=== PATIENT | female | born 1960 | race Caucasian/White ===

== ENCOUNTER 2016-09-08 19:31 | Emergency (ER) | payer BC ==
[2016-09-08 20:13] VITALS: BP 107/64
--- NOTE | 2016-09-08 21:41 | UC ---
UC General HPI - HPI Summary HPI Summary: The patient comes in today for: 1. Fever, Diarrhea, urinary frequency, urgency, and dysuria. Onset: 3 days ago. Palliative/provocative: Nothing makes her symptoms better or worse. Quality: Dysuria. Region: Severity: 0/10 Time: Comes and goes. Associated symptoms: Fever: No temperatures taken at home. Last UTI: She does not know. Recent antibiotics: NOne. Diarrhea: 2-3 stools/day. No blood or pus in stools. No cramps except sometimes. Vomiting: None. No nausea. * - History of Current Complaint Chief Complaint: UCGeneralIllness Stated Complaint: URINARY,FEVER,DIARRHEA Time Seen by Provider: 09/08/16 21:35 Hx Obtained From: Patient - Allergy/Home Medications Allergies/Adverse Reactions: Allergies Allergy/AdvReac Type Severity Reaction Status Date / Time wheat Allergy Coughing Uncoded 09/08/16 20:13 PMH/Surg Hx/FS Hx/Imm Hx Previously Healthy: No Endocrine History Of: Denies: Diabetes, Thyroid Disease, Hyperthyroidism, Hypothyroidism, Dyslipidemia Cardiovascular History Of: Reports: Hypertension Denies: Cardiac Disorders, Pacemaker/ICD, Myocardial Infarction, Congestive Heart Failure, Atrial Fibrillation, Deep Vein Thrombosis, Bleeding Disorders Respiratory History Of: Denies: COPD, Asthma, Bronchitis, Pneumonia, Pulmonary Embolism GI/ History Of: Denies: Gastroesophageal Reflux, Ulcer, Gastrointestinal Bleed, Gall Bladder Disease, Kidney Stones, Diverticulitis, Renal Disease, Urosepsis Neurological History Of: Denies: TIA, CVA, Dementia, Seizures, Migraine Psychological History Of: Reports: Depression Denies: Anxiety, Bipolar Disorder, Schizophrenia, Post Traumatic Stress Disorder Cancer History Of: Denies: Lung Cancer, Colorectal Cancer, Breast Cancer, Prostate Cancer, Cervical Cancer Other History Of: Negative For: HIV, Hepatitis B, Hepatitis C, Anticoagulant Therapy - Surgical History Surgical History: Yes Surgery Procedure, Year, and Place: tubal, C-sections, Tonsilectomy, hysterectomy - Family History Known Family History: Positive: Hypertension, Diabetes - Social History Occupation: Employed Full-time Alcohol Use: Occasionally Substance Use Type: None Smoking Status (MU): Never Smoked Tobacco - Immunization History Most Recent Influenza Vaccination: no Review of Systems Constitutional: Fever Skin: Negative Eyes: Negative ENT: Negative Respiratory: Negative Cardiovascular: Negative Gastrointestinal: Diarrhea Genitourinary: Dysuria, Frequency, Urgency All Other Systems Reviewed And Are Negative: Yes Physical Exam Triage Information Reviewed: Yes Appearance: Well-Appearing, No Pain Distress, Well-Nourished Vital Signs: Initial Vital Signs Temp 100 F 09/08/16 20:07 Pulse 76 09/08/16 20:07 Resp 16 09/08/16 20:07 BP 107/64 09/08/16 20:07 Pulse Ox 97 09/08/16 20:07 Vital Signs Reviewed: Yes Eyes: Positive: Conjunctiva Clear. Negative: Discharge ENT: Positive: Hearing grossly normal. Negative: Pharyngeal erythema, Nasal congestion, Nasal drainage, TM bulging, TM dull, TM red, Tonsillar swelling, Tonsillar exudate Dental: Negative: Gross Decay/Caries @, Dental Fracture @ Neck: Positive: Supple, Nontender, No Lymphadenopathy. Negative: Nuchal Rigidity Respiratory: Positive: Lungs clear, No respiratory distress, No accessory muscle use. Negative: Rhonchi, Wheezing Cardiovascular: Positive: RRR, No Murmur Abdomen Description: Positive: Nontender, No Organomegaly, Soft. Negative: Distended, Guarding Musculoskeletal: Positive: Strength Intact, ROM Intact Neurological: Positive: Alert, Muscle Tone Normal Psychological: Positive: Age Appropriate Behavior, Consolable Skin: Negative: rashes, breakdown Course/Dx - Differential Dx - Multi-Symptom Provider Diagnoses: Viral gastroenteritis. UTI Discharge - Discharge Plan Condition: Stable Disposition: HOME Patient Education Materials: Urinary Tract Infection in Women (ED) Referrals: Heather Adams MD [Primary Care Provider] - 1 Week (Please see your primary care provider in about one to two weeks to see how well you are doing. If you get worse, please be seen sooner.)
[2016-09-08] MEDS ORDERED: Phenazopyridine TAB* 100 MG PO ONE (21:51)
[2016-09-08] MEDS ORDERED: Sulfamethox/Trimethoprim DS 800/160* TAB PO ONE (21:52)
== END 2016-09-08 22:08 | disposition home or self-care (01) ==
LOC: UCCORT 19:31
DX: A08.4 Viral intestinal infection, unspecified (principal); N39.0 Urinary tract infection, site not specified; I10 Essential (primary) hypertension; F32.9 Major depressive disorder, single episode, unspecified
CPT/HCPCS: 81003; 87086; 99212; A9270-GY; G0463

== ENCOUNTER 2016-11-16 01:41 | Observation (INO) | payer BC ==
[2016-11-16 02:51] LABS: Hematocrit 41 % (35-47); Hemoglobin 13.7 g/dl (12.0-16.0); Mean Corpuscular HGB Conc 33 g/dl (31-36); Mean Corpuscular Hemoglobin 31 pg (27-31); Mean Corpuscular Volume 93 fL (80-97); Mean Platelet Volume 9 um3 (7.4-10.4); Red Blood Count 4.47 10^6/ul (4.0-5.4); Red Cell Distribution Width 14 % (10.5-15); White Blood Count 10.1 10^3/ul (3.5-10.8)
[2016-11-16 03:07] LABS: ALT 107 U/L (7-52); AST 193 U/L (13-39); Albumin 4.2 g/dL (3.2-5.2); Alkaline Phosphatase 104 U/L (34-104); Anion Gap 7 mmol/L (2-11); BUN/Creatinine Ratio 16.7 (8-20); Blood Urea Nitrogen 13 mg/dL (6-24); CO2 Carbon Dioxide 25 mmol/L (22-32); Calcium 9.2 mg/dL (8.6-10.3); Chloride 104 mmol/L (101-111); EGFR African American 97.6 (>60); EGFR Non-African American 75.9 (>60); Globulin 3.4 g/dL (2-4); Glucose 137 mg/dL (70-100); Potassium 4.2 mmol/L (3.5-5.0); Sodium 136 mmol/L (133-145); Total Protein 7.6 g/dL (6.4-8.9)
[2016-11-16 03:08] LABS: Troponin I 0.01 ng/mL (<0.04)
[2016-11-16 03:16] LABS: TSH (Thyroid Stimulating Horm) 1.51 mcIU/mL (0.34-5.60)
[2016-11-16] MEDS ORDERED: Aspirin Low Dose CHEW TAB* 81 MG PO ONE (07:08)
[2016-11-16 07:45] LABS: Hematocrit 40 % (35-47); Hemoglobin 13.4 g/dl (12.0-16.0); Mean Corpuscular HGB Conc 34 g/dl (31-36); Mean Corpuscular Hemoglobin 31 pg (27-31); Mean Corpuscular Volume 92 fL (80-97); Mean Platelet Volume 9 um3 (7.4-10.4); Red Blood Count 4.35 10^6/ul (4.0-5.4); Red Cell Distribution Width 14 % (10.5-15); White Blood Count 8.8 10^3/ul (3.5-10.8)
--- NOTE | 2016-11-16 08:03 | RAD ---
INDICATION: Syncope COMPARISON: None TECHNIQUE: An AP portable view obtained at 0730 hours is submitted. FINDINGS: Bones/Soft Tissues: There are no acute bony findings. Cardiomediastinal: The cardiomediastinal silhouette is normal. Lungs: There are no infiltrates. Pleura: There are no pleural effusions. Other: None IMPRESSION: NO ACTIVE DISEASE.
[2016-11-16 08:06] LABS: Urine Bilirubin Negative (Negative); Urine Glucose Negative (Negative); Urine Nitrite Negative (Negative)
[2016-11-16] MEDS ORDERED: Iohexol 350* (CONTRAST) 500 ML MDV IV ONE (08:32)
[2016-11-16] MEDS ORDERED: Lisinopril TAB* 10 MG PO ONE (08:34)
[2016-11-16] MEDS ORDERED: Citalopram TAB* 20 MG PO SCH (09:00)
--- NOTE | 2016-11-16 09:34 | RAD ---
INDICATION: Back pain. Evaluate for aortic dissection. COMPARISON: None TECHNIQUE: Axial source images were obtained from the thoracic inlet to the iliac crests following administration of [address] angiographic technique was utilized. Coronal and sagittal reconstructed images were acquired. Neck/thyroid: The visualized neck to include the thyroid appear normal. Chest wall: There are no acute abnormalities of the bony thorax or chest wall. There is no supraclavicular, infraclavicular, or axillary lymphadenopathy. Lungs : There are no pulmonary parenchymal masses or infiltrates. The pulmonary interstitium appears normal. There are no endobronchial lesions. Mediastinum: There is no evidence of mediastinal or hilar adenopathy. The esophagus appears normal. Aorta/the central arteries: The heart is normal in size. There is no pericardial effusion. There are no CT radiographic abnormalities of the arch or great vessels arising from the arch. There is no evidence of aortic thoracic or abdominal aneurysm or dissection. 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 There are single renal arteries The visualized iliac vessels are normal. Pleura : There are no pleural-based masses or effusions. Abdominal viscera: Early arterial phase enhancement of the solid viscera demonstrates mild hepatomegaly with hepatic steatosis but no focal mass. The spleen appears normal on the early arterial phase images. There is no adrenal or pancreatic pathology. The kidneys are unremarkable with prompt perfusion. Other: There is no free fluid or adenopathy. The noncontrast CT appearance the visualized bowel is unremarkable. There are no acute osseous findings. There is mild diastases of the rectus abdominis musculature IMPRESSION: NO CT EVIDENCE OF AORTIC ANEURYSM OR DISSECTION.
[2016-11-16] MEDS ORDERED: Ondansetron INJ* 2 MG/ML VIAL IV PRN (11:16)
[2016-11-16] MEDS ORDERED: NS 0.9% 1000 ML* 1,000 ML IV SCH (11:30)
[2016-11-16] MEDS ORDERED: Thiamine IV* 100 MG, Folic Acid IV* 1 MG, Multiple Vitamin IV ADULT* 10 ML in NS 0.9% 1... IV ONE (11:30)
[2016-11-16 11:49] LABS: Alcohol < 10 mg/dL (<10)
[2016-11-16] MEDS: Sucralfate TAB* 1 GM PO SCH ×2 (12:35→16:34)
[2016-11-16] MEDS: Omeprazole CAP* 20 MG PO SCH ×2 (12:35→16:33)
--- NOTE | 2016-11-16 19:46 | HP ---
CC: Dr. Heather Adams* HISTORY AND PHYSICAL: DATE OF ADMISSION: 11/16/16 PRIMARY CARE PROVIDER: Dr. Heather Adams. ATTENDING PHYSICIAN WHILE IN THE HOSPITAL: Maame Monsivais DO.* (Report dictated by Elvin Roque NP). CHIEF COMPLAINT: 1. Syncope. 2. Epigastric pain radiating into the back and chest. HISTORY OF PRESENT ILLNESS: Ms. Diallo is a 56-year-old female patient, she has a history of depression and hypertension. She comes in today, last night she had 2 syncopal episodes last night after eating dinner. She ate half her dinner, she was feeling epigastric discomfort, burning discomfort. She said that her was driving her home. She started to become nauseous, she asked him to pullover and the door was open, but she was still buckled in and the next thing she knew she had fainted apparently according to the 's reports to her and she was out for seconds, she said. She came to, she recognized where she was when she had fainted. She denied any chest pain prior to this, but she did admit to feeling nauseated and having some epigastric discomfort. She said she did not feel short of breath. She has not been sick recently. There has been no recent trips or travel. No long car rides. She states that she has not had any cough or fevers. She got home and had a similar episode again where she became nauseous and she fainted and she was having epigastric discomfort and the pain was getting much worse and it was described as a sharp stabbing pain that again was going into the back and up into the chest. She was concerned. She felt because of the second time of her fainting , she decided to come into the ER. She does admit that her father is actively dying and this has caused her a lot of stress and over the last couple of weeks , she has been drinking mixed alcohol drinks on a daily basis. She does not quantify how much, but says she has been drinking much more heavily than when she normally does. She denies currently having any chest pain, she says she does not have any epigastric pain now. She does not feel nauseous. She denied having any recent change in medications. No recent fevers or chills. Because of the syncopal episodes and this epigastric discomfort, the hospitalist service was asked to evaluate for admission. PAST MEDICAL HISTORY: Significant for: 1. Depression. 2. Hypertension. PAST SURGICAL HISTORY: She has had: 1. . 2. Hysterectomy. 3. Tubal ligation. HOME MEDICATIONS: include, 1. Lisinopril 10 mg p.o. daily. 2. Lexapro 1 tablet p.o. daily. ALLERGIES TO MEDICATIONS: Denied. FAMILY HISTORY: Mother had a history of AFib , dementia. Father had a history of AFib as well, he also has a history of congestive heart failure and liver dysfunction. SOCIAL HISTORY: She does not smoke. She is now drinking nightly over the last couple of weeks. She does not quantify how much. Her surrogate decision maker is her . REVIEW OF SYSTEMS: There is no documented fevers. She denied having any significant weight changes. There was no double vision. There is no ear discharge. She denies having any double vision. There is no rhinorrhea. No sore throat. No thyroid enlargement. She denied having any chest pain currently, but there was some per my HPI. She did have an epigastric discomfort , nausea, but there was one episode of vomiting with a second episode of nausea. No dysuria, no frequency. No seizure. There was loss of consciousness. No pruritus and no skin ulceration. Review of 14 systems completed, all others negative. PHYSICAL EXAMINATION GENERAL: At this time, Ms. Diallo is a 56-year-old female patient. She appears to be well nourished, well developed. She is sitting in the ER stretcher. She does not appear to be in any acute distress. VITAL SIGNS: Blood pressure 119/62, pulse 73, respirations 18, O2 sat 97%, temperature 98.4 HEENT: Head is atraumatic and normocephalic. Eyes: EOMs are intact. Sclerae was anicteric and not pale. Throat: Oral mucosa appears to be moist. No oropharyngeal erythema. NECK: Supple. LUNGS: Clear to auscultation. No wheezes, rales or rhonchi. HEART: Sounds S1 and S2. Regular rate and rhythm. No murmurs, rubs or gallops. ABDOMEN: Soft, flat. Nontender. There was no tenderness in the epigastric area. EXTREMITIES: Pulses were 2+ throughout. She is able to move all 4 extremities with 5/5 strength. NEUROLOGIC: The patient is awake, she is alert, she is oriented x3, no gross focal deficits. SKIN: Intact. LABORATORY DATA/IMAGING: Today revealed a WBC of 8.8, RBC of 4.35, hemoglobin of 13.4, hematocrit of 40, platelet count 224. Sodium is 136, potassium 4.2, chloride of 104, bicarb 25, BUN 13, creatinine 0.78, glucose 137. Initial lactic was 2.2, it is now 1.9. Her mag was 2.0 with a total bilirubin 1.0. AST 193, ALT 107. Alk phos 104. Troponin 0.01. Repeat troponin was 0. Albumin 4.2. Urine was obtained that was positive for urobilinogen. She did have a CTA of the chest and abdomen which revealed no CT evidence of aortic aneurysm or dissection. There was an EKG obtained today which showed a normal sinus rhythm with a rate of 76, no ST elevations or T-wave inversions were noted. She had a chest x-ray obtained today as well which revealed impression, no active disease. Old medical records are reviewed. ASSESSMENT AND PLAN: Ms. Diallo is a 56-year-old female patient coming into the ER today with complaints of a 2 syncopal episodes in the setting of nausea and epigastric pain. She will be admitted under observation status for: 1. Syncope. I suspect that reason she is passing out twice now is probably because of vasovagal due to pain and nausea. My plan now is to go ahead check an echo. I will place her on telemetry. Her troponins have been cycled. I will get orthostatic blood pressures. I see that those have not been ordered yet. In addition to this, we will continue to monitor her and pending on the echo will dependent on her disposition. 2. Chest discomfort with associated epigastric pain. This is probably gastritis from her alcohol consumption. I am going to put her on the Carafate and omeprazole. I have also ordered a stress test, she does have the history of hypertension, just to make sure this is not cardiac related, which will be done tomorrow. She will be NPO after midnight and then have a heart healthy diet. We did cycle her troponins. I will get another troponin in the morning and I will check her lipid panel. 3. Elevated LFTs. This is probably secondary to her alcohol use. I will go ahead and give her a banana bag. I have asked her to abstain from drinking as I think this is probably why she is having the epigastric discomfort. I do not think she needs the [facility] protocol just yet. She has never had any signs of withdrawal and she says she has just been drinking like this in the last couple of weeks due to family, her father dying. We will monitor her, should she have any signs of withdrawal, then obviously I would go ahead and get her on the [facility] protocol. 4. DVT prophylaxis. She will be placed on SCDs. 5. Code status. Full code. 6. Fluids, electrolytes, nutrition. She can have a heart healthy diet and she is NPO after midnight. TIME SPENT: Time spent on the admission was 60 minutes, greater than half the time was spent face to face with the patient obtaining my history and physical, the other half of the time was spent going over the plan of care with the patient and implementing the place of care. I did discuss the plan of care with my attending Dr. Monsivais, she is in agreement. ELVIN ROQUE, MELINA [id number]/CPS #: [id number] ZOILA
[2016-11-17 05:13] LABS: Hematocrit 39 % (35-47); Mean Corpuscular HGB Conc 33 g/dl (31-36); Mean Corpuscular Hemoglobin 31 pg (27-31); Mean Corpuscular Volume 94 fL (80-97); Mean Platelet Volume 9 um3 (7.4-10.4); Red Blood Count 4.15 10^6/ul (4.0-5.4); Red Cell Distribution Width 14 % (10.5-15)
[2016-11-17 05:42] LABS: Troponin I 0.01 ng/mL (<0.04)
[2016-11-17 06:01] LABS: Albumin 3.5 g/dL (3.2-5.2); BUN/Creatinine Ratio 14.3 (8-20); Calcium 8.3 mg/dL (8.6-10.3); Direct Bilirubin 0.2 mg/dL (0.03-0.18); Globulin 2.8 g/dL (2-4); Potassium 4.2 mmol/L (3.5-5.0); Total Protein 6.3 g/dL (6.4-8.9)
[2016-11-17 07:38] LABS: Indirect Bilirubin 0.5 mg/dL (0.3-1.0); Total Bilirubin 0.7 mg/dL (0.2-1.0)
[2016-11-17] MEDS: Sucralfate TAB* 1 GM PO SCH ×2 (07:40→13:51)
[2016-11-17] MEDS ORDERED: Thiamine TAB* 100 MG TAB PO SCH (09:00)
[2016-11-17] MEDS ORDERED: Lisinopril TAB* 10 MG PO SCH (09:00)
[2016-11-17] MEDS ORDERED: CMC:Escitalopram (NF) 10 MG TAB PO SCH (09:00)
[2016-11-17] MEDS ORDERED: Folic Acid TAB* 1 MG PO SCH (09:00)
[2016-11-17] MEDS: Omeprazole CAP* 20 MG PO SCH (10:11)
--- NOTE | 2016-11-17 10:31 | ECHO ---
Patient: [facility] Rec#: [id number] : 1960 Date: 11/17/2016 Age: 56y Height: 172.7 cm / 68.0 in Weight: 102.1 kg / 225.0 lbs Sex: F BSA: 2.2 Room#: [facility] Admit Date#: 11/16/2016 Type: Inpatient Referring: Maame Monsivais DO Reading: Tavon Taveras MD Independent Agent Music Education: Brionna Navarro RN RDCS CC: Heather Adams MD Transthoracic Echocardiogram Indication: Syncope BP: 103/66 HR: 64 Rhythm: NSR Findings History: HTN, obesity Technical Comments: The study quality is fair. The study is technically limited due to patient body habitus. Completed at 0845. Left Ventricle: The left ventricular chamber size is normal. Septal wall hypertrophy is observed. Global left ventricular wall motion and contractility are within normal limits. Left ventricular systolic function is at the lower limits of normal. The estimated ejection fraction is 50-55%. Normal left ventricular diastolic filling is observed. Left Atrium: The left atrial chamber size is normal. Right Ventricle: The right ventricular chamber size and systolic function are within normal limits. Right Atrium: The right atrial cavity size is normal. Aortic Valve: The aortic valve is trileaflet. The aortic valve leaflets are mildly thickened. There is a trace of aortic regurgitation. There is no evidence of aortic stenosis. Mitral Valve: The mitral valve leaflets are mildly thickened. There is mild mitral regurgitation. There is no evidence of mitral stenosis. Tricuspid Valve: The tricuspid valve leaflets are normal. There is trace tricuspid regurgitation. Unable to estimate the right ventricular systolic pressure. Pulmonic Valve: The pulmonic valve appears normal. There is trace to mild pulmonic regurgitation. There is no pulmonic stenosis. Pericardium: There is no significant pericardial effusion. A pericardial fat pad is visualized. Aorta: There is no dilatation of the ascending aorta. There is no dilatation of the aortic arch. There is no dilation of the aortic root. Pulmonary Artery: The main pulmonary artery is not well visualized. Venous: The inferior vena cava appears normal in size. There is an approximate 50% respiratory change in the inferior vena cava dimension. Conclusions Global left ventricular wall motion and contractility are within normal limits. Left ventricular systolic function is at the lower limits of normal. The estimated ejection fraction is 50-55%. The right ventricular chamber size and systolic function are within normal limits. There is a trace of aortic regurgitation. There is mild mitral regurgitation. There is trace tricuspid regurgitation. Unable to estimate the right ventricular systolic pressure. There is no significant pericardial effusion. Measurements Name Value Normal Range RVDdMajor (2D) 3.2 cm (2.2 - 4.4) RAd ISD 4CH 4.2 cm (3.4 - 4.9) RA (A4C)W 3.4 cm (2.9 - 4.6) IVSd (2D) 1.1 cm (0.6 - 1) LVPWd (2D) 0.9 cm (0.6 - 1) LVIDd (2D) 4.3 cm (3.6 - 5.4) LVIDs (2D) 3.2 cm - LV FS (2D) 25 % (25 - 45) Aortic Annulus 2.1 cm (1.4 - 2.6) Ao root diameter (2D) 2.7 cm (2.1 - 3.5) Ascending Ao 3.2 cm (2.1 - 3.4) Aortic arch 2.8 cm (1.8 - 3.4) LAd ISD 4CH 4.7 cm (2.9 - 5.3) LA ISD 4CH W 3.1 cm (2.5 - 4.5) Name Value Normal Range LA ESV SP 4CH (A/L) 44 ml - LA ESV SP 2CH (A/L) 31 ml - LA ESV BP (A/L) 37 ml - LA ESV BP (A/L) index 17 ml/m2 - LA ESV SP 4CH (MOD) 41 ml - LA ESV SP 2CH (MOD) 29 ml - Name Value Normal Range MV E-wave Vmax 0.75 m/sec - MV deceleration time 157 msec - MV A-wave Vmax 0.58 m/sec - MV E:A ratio 1.3 ratio - LV septal e' Vmax 0.1 m/sec - LV lateral e' Vmax 0.11 m/sec - LV E:e' septal ratio 7.5 ratio - LV E:e' lateral ratio 6.8 ratio - Name Value Normal Range AV Vmax 1.2 m/sec - AV VTI 30 cm - AV peak gradient 5 mmHg - AV mean gradient 4 mmHg - LVOT Vmax 1.1 m/sec - LVOT VTI 25.8 cm - LVOT peak gradient 4.4 mmHg - LVOT mean gradient 2.6 mmHg - AMY Vmax 0.7 m/sec - Name Value Normal Range IVC diameter 2.1 cm - Name Value Normal Range PV Vmax 0.75 m/sec -
--- NOTE | 2016-11-17 10:34 | RAD ---
Edited for charges. INDICATION: Chest and epigastric pain. COMPARISON: There are no prior studies available for comparison. Technique: A single day myocardial perfusion stress study was performed. Initially a resting study was performed. The patient was given an intravenous injection of 11.0 mCi of technetium 99m tetrofosmin and and the heart was imaged in multiple projections. The patient returned later in the day and under the direction of Dr. Contreras, the patient was exercised to a peak heart rate of 147 beats per minute which was 91% of the maximum predicted heart rate. Subsequently the patient was given intravenous injection of 25.2 mCi of technetium 99m tetrofosmin and the heart was imaged in multiple projections. Images were reconstructed in the axial, sagittal and coronal planes and in a 3- D format. FINDINGS: There appears to be normal wall motion and myocardial thickening. The left ventricular ejection fraction was calculated to be 77%. Review of the images demonstrates normal distribution of radiopharmaceutical. There is no evidence for infarct or ischemia. IMPRESSION: NO EVIDENCE FOR INFARCT OR ISCHEMIA. ASSESSMENT: Low risk. Based on imaging criteria from ACC/AHA 2002 Guideline Update for the Management of Patients With Chronic Stable Angina Table 23. Noninvasive Risk Stratification. MTDD
[2016-11-17 11:20] VITALS: BP 124/78
--- NOTE | 2016-11-17 13:07 | DS ---
DOA: 11/16/2016 DOD: 11/17/2016 Care team: Admitting provider: Dr. Maame Monsivais Attending provider: Tj Jara PA-C Discharge provider: GRAY Kaufman PCP: Dr. Heather Adams Discharge Diagnosis: 1) Syncope 2) Gastritis secondary to alcohol use 3) Transaminitis Secondary Diagnosis: 1) Depression 2) Hypertension Discharge medications: Omeprazole 20 mg PO daily x 2 weeks. Lisinopril 10 mg PO daily Lexapro 10 mg PO daily Changes to home medications: Add Omeprazole Imaging: EKG: NSR CXR: No active cardiopulmonary disease CTA: No evidence of aortic aneurysm or dissection Transthoracic echo: WNL with EF of 50-55% with normal ventricular and valvular functioning and contractility. Nuclear stress test: No evidence of ischemia or infarct. Hospital Course: This is a 56 yo white female with PMH of HTN and depression that presented to the ER on 11/16/2016 after 2 syncopal episodes yesterday night about 3 hours apart with associated epigastric pain with radiation into back and chest and nausea with vomiting after second episode. One episode was after dinner and the other episode was while driving and patient received troponins which came back negative, EKG/CXR both negative, and given her described epigastric pain while radiation was worked up for possible aortic dissection or aneurysm with CTA that came back negative. Her CBC on admission was essentially WNL and Chemistries displayed transaminase with AST>ALT at 193>107 and mild lactic acidosis which resolved and patient received a banana bag in the ER with continued thiamine and folic acid supplementation. Patient admits to recent increase in alcohol use in the past few weeks without quantification to how much , with increased stress from the of her father. She was consulted on the impacts of alcohol use and cause of her elevated LFTs. Patient remained on telemetry and received a transthoracic echo and nuclear stress test while admitted and that was without any abnormal findings and with no ischemia or infarct to help rule out any cardiac causation of her syncopal episodes and epigastric pains. It was suspected that her syncopal episodes with vaso vagal in nature and her epigastric pain a new gastritis given her recent alcohol use. She received PPI and carafate while impatient with relief from symptoms. She denies any pain or dizziness on day of discharged with remained elevated transaminases, but in agreement to abstain from alcohol use. She is to remain on PPI for 2 weeks for gastritis symptoms. Follow up plan/disposition: She is to return home with her . She is in agreement from alcohol abstinence and PPI treatment. She should follow up with PCP in next 1-2 weeks with repeats checks in her transaminases.
--- NOTE | 2016-11-18 05:08 | DS ---
CC: Dr. Heather Adams * DISCHARGE SUMMARY: DATE OF ADMISSION: 11/16/16 DATE OF DISCHARGE: 11/17/16 PRIMARY CARE PROVIDER: Dr. Heather Adams. DISCHARGING PROVIDER: JANUSZ Bailey SUPERVISING PHYSICIAN: Lakeisha Cuba MD * (DICTATED BY JANUSZ BIALEY) PRIMARY DISCHARGE DIAGNOSES: 1. Syncope - likely vasovagal. 2. Suspected gastritis. 3. Transaminitis - likely secondary to alcohol intake. SECONDARY DISCHARGE DIAGNOSES: 1. Hypertension. 2. Depression. DISCHARGE MEDICATIONS: 1. Lexapro 20 mg p.o. daily. 2. Lisinopril 10 mg p.o. daily. 3. Omeprazole 20 mg p.o. b.i.d. x14 days. MEDICATIONS CHANGES: Omeprazole x2 weeks. HOSPITAL IMAGIN. Chest x-ray shows no acute process. 2. CTA of the chest and abdomen shows no evidence of aortic aneurysm or dissection. 3. Nuclear stress test is negative for ischemia or infarct. 4. Transthoracic echocardiogram is essentially within normal limits with an ejection fraction of 50% to 55% with no significant valvular disease. HOSPITAL COURSE: This is a 56-year-old female with history of depression and hypertension, who presented to the emergency department with complaints of epigastric pain that was radiating through to her back as well as two syncopal episodes. The patient's syncope occurred really after eating dinner after which she began complaining of a burning epigastric pain with associated nausea. She was driving with her and had asked him to bleach boiler puller when she syncopized for at least several seconds. She admitted to recent increase in alcohol intake related to the stress of her father actively dying. Initial workup was mostly benign including a normal CBC. Chemistries demonstrated a transaminitis with nearly a 2:1 ratio of AST to ALT and a mildly elevated lactic acid. Serum alcohol was negative at that time of admission. CTA of the chest and abdomen were performed specifically evaluating for dissection due to her complaints of epigastric pain radiating through to her back. CTA was negative. The patient underwent echocardiogram and nuclear stress test, which were essentially within normal limits and did not demonstrate any specific pathology. On the morning of discharge, the patient is asymptomatic without complaints of abdominal pain or feelings of lightheadedness. 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 Specifically discussed with her is the findings of transaminitis and suspected gastritis and how those are related to her alcohol intake as well. DISPOSITION AND FOLLOWUP PLANNING: The patient is being discharged to home, where she lives with her . Recommend 2 weeks of omeprazole and close followup with her primary care provider. JANUSZ BAILEY [id number]/[facility] #: [id number] ZOILA
== END 2016-11-17 14:00 | disposition home or self-care (01) ==
LOC: ED 01:41 → MEDTELE 10:16
PROVIDERS: ADMIT Hospitalist; ATTEND Internal Medicine
DX: R55 Syncope and collapse (principal); K29.20 Alcoholic gastritis without bleeding; I10 Essential (primary) hypertension; F32.9 Major depressive disorder, single episode, unspecified
CPT/HCPCS: 36415; 71010; 71275; 74175; 78452; 80048; 80053; 80074; 80076; 80320; 81003; 82977; 83605; 83735; 84443; 84484; 85025; 85610; 93005; 93017; 93306; 96374; 99283; A9270-GY; A9502; G0378; G0480; Q9967

== ENCOUNTER 2017-09-03 08:21 | Emergency (ER) | payer BC ==
[2017-09-03 08:53] VITALS: BP 111/77
--- NOTE | 2017-09-03 09:12 | UC ---
Complaint Female HPI - HPI Summary HPI Summary: URINARY BURNING AND FREQUENCY X 1 DAY + URGENCY, NO FEVER, NO CHILLS, NO FLANK PAIN - History Of Current Complaint Chief Complaint: UCGU Stated Complaint: URINARY COMPLAINT Time Seen by Provider: 09/03/17 08:58 Hx Obtained From: Patient Hx Last Menstrual Period: n/a ?: No Onset/Duration: Gradual Onset, Lasting Days - 1, Still Present Timing: Constant Severity Initially: Moderate Severity Currently: Moderate Pain Intensity: 4 Character: Burning Aggravating Factor(s): Urination Alleviating Factor(s): Nothing Associated Signs And Symptoms: Negative: Fever, Back Pain, Vaginal Bleeding/ Discharge, Vaginal Discharge, Nausea, Vomiting(# Of Episodes =), Genital Swelling, Genital Blisters, Retained Foregin Body (Specify) - Allergies/Home Medications Allergies/Adverse Reactions: Allergies Allergy/AdvReac Type Severity Reaction Status Date / Time wheat Allergy Coughing Uncoded 09/03/17 08:47 Home Medications: Home Medications Aspirin EC TAB* [Ecotrin EC Low Dose 81 MG*] 81 mg PO DAILY 09/03/17 [History Confirmed 09/03/17] Atorvastatin* [Lipitor*] 10 mg PO BEDTIME 09/03/17 [History Confirmed 09/03/17] Escitalopram Oxalate [Lexapro] 10 mg PO 09/03/17 [History] PMH/Surg Hx/FS Hx/Imm Hx Cardiovascular History: Hypertension Other History Of: Negative For: HIV, Hepatitis B, Hepatitis C, Anticoagulant Therapy - Surgical History Surgical History: Yes Surgery Procedure, Year, and Place: tubal, C-sections, Tonsilectomy, hysterectomy - Family History Known Family History: Positive: Hypertension, Diabetes - Social History Alcohol Use: Occasionally Alcohol Amount: 3 mixed drinks/day Substance Use Type: None Smoking Status (MU): Never Smoked Tobacco - Immunization History Most Recent Influenza Vaccination: no Review of Systems Constitutional: Negative Skin: Negative Eyes: Negative ENT: Negative Respiratory: Negative Cardiovascular: Negative Gastrointestinal: Negative Genitourinary: Dysuria, Frequency, Urgency Is Patient Immunocompromised?: No All Other Systems Reviewed And Are Negative: Yes Physical Exam Triage Information Reviewed: Yes Appearance: Well-Appearing, No Pain Distress, Well-Nourished Vital Signs: Initial Vital Signs Temp 97.4 F 09/03/17 08:44 Pulse 67 09/03/17 08:44 Resp 18 09/03/17 08:44 BP 111/77 09/03/17 08:44 Pulse Ox 97 09/03/17 08:44 Vital Signs Reviewed: Yes Eyes: Positive: Conjunctiva Clear ENT: Positive: Normal ENT inspection, Hearing grossly normal, Pharynx normal Neck: Positive: Supple, Nontender, No Lymphadenopathy Respiratory: Positive: Chest non-tender, Lungs clear, Normal breath sounds Cardiovascular: Positive: RRR, No Murmur, Pulses Normal Abdomen Description: Positive: Nontender, Soft. Negative: CVA Tenderness (R), CVA Tenderness (L), Distended, Guarding Bowel Sounds: Positive: Present Complaint Female Dx - Differential Dx/Diagnosis Provider Diagnoses: UTI Discharge - Sign-Out/Discharge Documenting (check all that apply): Discharge - Discharge Plan Condition: Stable Disposition: HOME Prescriptions: Sulfamethox/Trimethoprim DS* [Bactrim DS 800/160 TAB*] 1 tab PO BID #14 tab Patient Education Materials: Urinary Tract Infection in Women (DC) Referrals: Heather Adams MD [Primary Care Provider] - If Needed - Billing Disposition and Condition Condition: STABLE Disposition: HOME
--- NOTE | 2017-09-05 07:33 | UC ---
- Progress Note Progress Note: Urine culture is negative. Stop antibiotics. Discharge - Sign-Out/Discharge Documenting (check all that apply): Discharge - Discharge Plan Condition: Stable Disposition: HOME Prescriptions: Sulfamethox/Trimethoprim DS* [Bactrim DS 800/160 TAB*] 1 tab PO BID #14 tab Patient Education Materials: Urinary Tract Infection in Women (DC) Referrals: Heather Adams MD [Primary Care Provider] - If Needed - Billing Disposition and Condition Condition: STABLE Disposition: HOME
== END 2017-09-03 09:12 | disposition home or self-care (01) ==
LOC: UCCORT 08:21
DX: N39.0 Urinary tract infection, site not specified (principal); I10 Essential (primary) hypertension
CPT/HCPCS: 81003; 87086; 99212; G0463

== ENCOUNTER 2017-11-23 10:00 | Emergency (ER) | payer BC ==
[2017-11-23 10:14] VITALS: BP 137/80
--- NOTE | 2017-11-23 10:29 | ED ---
GI/ HPI - HPI Summary HPI Summary: 57 yr old female with dysuria, frequency of urination. Onset just this morning. no fever, chills, back pain, nausea or vomiting. - History of Current Complaint Chief Complaint: UCGU Time Seen by Provider: 11/23/17 10:10 Stated Complaint: URINARY Hx Last Menstrual Period: n/a Pain Intensity: 2 - Additional Pertinent History Primary Care Physician: SHAYY - Allergy/Home Medications Allergies/Adverse Reactions: Allergies Allergy/AdvReac Type Severity Reaction Status Date / Time wheat Allergy Coughing Uncoded 11/23/17 10:11 Home Medications: Home Medications Ursodiol CAP* [Actigall CAP 300 MG*] 300 mg PO BID 11/23/17 [History Confirmed 11/23/17] PMH/Surg Hx/FS Hx/Imm Hx Endocrine/Hematology History: Denies: Hx Anticoagulant Therapy, Hx Diabetes, Hx Thyroid Disease Cardiovascular History: Reports: Hx Hypertension Denies: Hx Angina, Hx Congestive Heart Failure, Hx Coronary Artery Disease, Hx Deep Vein Thrombosis, Hx Hypercholesterolemia, Hx Myocardial Infarction, Hx Pacemaker/ICD, Hx Valvular Heart Disease Respiratory History: Denies: Hx Asthma, Hx Chronic Obstructive Pulmonary Disease (COPD), Hx Lung Cancer, Hx Pneumonia, Hx Pulmonary Embolism GI History: Denies: Hx Gall Bladder Disease, Hx Gastrointestinal Bleed, Hx Ulcer, Hx Urosepsis History: Denies: Hx Kidney Stones, Hx Renal Disease Sensory History: Reports: Hx Contacts or Glasses Denies: Hx Hearing Aid Opthamlomology History: Reports: Hx Contacts or Glasses Neurological History: Denies: Hx Dementia, Hx Migraine, Hx Seizures, Hx Transient Ischemic Attacks (TIA) Psychiatric History: Reports: Hx Depression Denies: Hx Anxiety, Hx Schizophrenia, Hx Bipolar Disorder - Surgical History Surgery Procedure, Year, and Place: tubal, , Tonsilectomy, hysterectomy Infectious Disease History: No Infectious Disease History: Denies: Traveled Outside the [place] in Last 30 Days - Family History Known Family History: Positive: Hypertension, Diabetes - Social History Occupation: Employed Full-time Alcohol Use: Daily Alcohol Amount: 1 drink daily Substance Use Type: Reports: None Smoking Status (MU): Never Smoked Tobacco Review of Systems Constitutional: Negative Positive: dysuria, frequency All Other Systems Reviewed And Are Negative: Yes Physical Exam Triage Information Reviewed: Yes Vital Signs On Initial Exam: Initial Vitals Temp Pulse Resp BP Pulse Ox 97.8 F 70 16 137/80 97 11/23/17 10:08 11/23/17 10:08 11/23/17 10:08 11/23/17 10:08 11/23/17 10:08 Vital Signs Reviewed: Yes Appearance: Positive: Well-Appearing, No Pain Distress Skin: Positive: Warm, Skin Color Reflects Adequate Perfusion Head/Face: Positive: Normal Head/Face Inspection Eyes: Positive: EOMI ENT: Positive: Pharynx normal, TMs normal Neck: Positive: Nontender Respiratory/Lung Sounds: Positive: Clear to Auscultation, Breath Sounds Present Cardiovascular: Positive: RRR. Negative: Murmur Abdomen Description: Negative: CVA Tenderness (R), CVA Tenderness (L) Musculoskeletal: Positive: Strength/ROM Intact Neurological: Positive: Sensory/Motor Intact, Alert, Oriented to Person Place, Time, CN Intact II-III Psychiatric: Positive: Normal - [place] Coma Scale Best Eye Response: 4 - Spontaneous Best Motor Response: 6 - Obeys Commands Best Verbal Response: 5 - Oriented Coma Scale Total: 15 Diagnostics - Vital Signs Vital Signs Temp Pulse Resp BP Pulse Ox 11/23/17 10:08 97.8 F 70 16 137/80 97 - Laboratory Lab Results: Lab Results 11/23/17 Range/Units 10:18 POC Urine Color Yellow POC Urine Clarity Slightly cloudy POC Urine pH 8.5 (5-9) POC Ur Specif [place] 1.020 (1.010-1.030) POC Urine Protein 1+ A (Negative) POC Ur Glucose (UA) Negative (Negative) POC Urine Ketones Negative (Negative) POC Urine Blood 2+ A (Negative) POC Urine Nitrite Negative (Negative) POC Urine Bilirubin Negative (Negative) POC Urine Urobilinogen 1.0 (Negative) POC U Leukocyte Esteras 1+ A (Negative) Lab Statement: Any lab studies that have been ordered have been reviewed, and results considered in the medical decision making process. GIGU Course/Dx - Course Course Of Treatment: 57 year old female with UTI. Plan DC home. - Diagnoses Provider Diagnoses: UTI (urinary tract infection) Discharge - Sign-Out/Discharge Documenting (check all that apply): Discharge/Admit/Transfer - Discharge Plan Condition: Good Disposition: HOME Prescriptions: Cephalexin CAP* [Keflex CAP*] 500 mg PO TID #15 cap Patient Education Materials: Urinary Tract Infection in Women (ED) Referrals: Heather Adams MD [Primary Care Provider] - 2 Days - Billing Disposition and Condition Condition: GOOD Disposition: Home
== END 2017-11-23 10:35 | disposition home or self-care (01) ==
LOC: UCCORT 10:00
DX: N39.0 Urinary tract infection, site not specified (principal)
CPT/HCPCS: 81003; 87086; 99212; G0463

== ENCOUNTER 2017-12-04 17:06 | Emergency (ER) | payer BC ==
[2017-12-04 17:45] VITALS: BP 117/82
--- NOTE | 2017-12-04 17:50 | UC ---
Complaint Female HPI - HPI Summary HPI Summary: dysuria x 1 day, + urinary frequency , hematuria , no fever, no chills, no flank pain - History Of Current Complaint Chief Complaint: UCGU Stated Complaint: URINARY Time Seen by Provider: 12/04/17 17:46 Hx Obtained From: Patient Hx Last Menstrual Period: n/a Onset/Duration: Gradual Onset, Lasting Days - 1, Still Present Timing: Constant Severity Initially: Moderate Severity Currently: Moderate Pain Intensity: 2 Character: Burning Aggravating Factor(s): Urination Associated Signs And Symptoms: Negative: Fever, Back Pain, Vaginal Bleeding/ Discharge, Vaginal Discharge, Nausea, Vomiting(# Of Episodes =), Genital Swelling, Genital Blisters, Retained Foregin Body (Specify) - Allergies/Home Medications Allergies/Adverse Reactions: Allergies Allergy/AdvReac Type Severity Reaction Status Date / Time wheat Allergy Coughing Uncoded 12/04/17 17:45 PMH/Surg Hx/FS Hx/Imm Hx Cardiovascular History: Hypertension Psychological History: Depression Other History Of: Negative For: HIV, Hepatitis B, Hepatitis C, Anticoagulant Therapy - Surgical History Surgical History: Yes Surgery Procedure, Year, and Place: tubal, , Tonsilectomy, hysterectomy - Family History Known Family History: Positive: Hypertension, Diabetes - Social History Alcohol Use: Occasionally Alcohol Amount: 1 drink daily Substance Use Type: None Smoking Status (MU): Never Smoked Tobacco - Immunization History Most Recent Influenza Vaccination: no Review of Systems Constitutional: Negative Skin: Negative Eyes: Negative ENT: Negative Respiratory: Negative Cardiovascular: Negative Gastrointestinal: Negative Genitourinary: Dysuria, Hematuria, Frequency, Urgency Motor: Negative Neurovascular: Negative Is Patient Immunocompromised?: No All Other Systems Reviewed And Are Negative: Yes Physical Exam Triage Information Reviewed: Yes Appearance: Well-Appearing, No Pain Distress, Well-Nourished Vital Signs: Initial Vital Signs Temp 97.9 F 12/04/17 17:40 Pulse 88 12/04/17 17:40 Resp 17 12/04/17 17:40 BP 117/82 12/04/17 17:40 Pulse Ox 98 12/04/17 17:40 Vital Signs Reviewed: Yes Eye Exam: Normal Eyes: Positive: Conjunctiva Clear ENT: Positive: Normal ENT inspection, Hearing grossly normal, Pharynx normal Neck exam: Normal Neck: Positive: Supple Respiratory: Positive: Chest non-tender, Lungs clear, Normal breath sounds Cardiovascular: Positive: RRR, No Murmur, Pulses Normal Abdomen Description: Positive: Nontender, Soft. Negative: CVA Tenderness (R), CVA Tenderness (L), Distended, Guarding Bowel Sounds: Positive: Present Skin Exam: Normal Complaint Female Dx - Differential Dx/Diagnosis Provider Diagnoses: UTI Discharge - Sign-Out/Discharge Documenting (check all that apply): Patient Departure - Discharge Plan Condition: Stable Disposition: HOME Prescriptions: Sulfamethox/Trimethoprim DS* [Bactrim DS 800/160 TAB*] 1 tab PO BID #14 tab Patient Education Materials: Urinary Tract Infection in Women (DC) Referrals: Heather Adams MD [Primary Care Provider] - If Needed - Billing Disposition and Condition Condition: STABLE Disposition: Home
== END 2017-12-04 18:11 | disposition home or self-care (01) ==
LOC: UCCORT 17:06
DX: N39.0 Urinary tract infection, site not specified (principal)
CPT/HCPCS: 81003; 87086; 99212; G0463

== ENCOUNTER 2018-07-31 16:13 | Emergency (ER) | payer BC, OTHER ==
--- OUTSIDE RECORDS SUMMARY | 2018-07-31 16:32 | XMS REPORT | Continuity of Care Document ---
:1960 External Reference #:[id number] Author Name Heather Medina MD Address [address] [place] [address] Care Team Providers Name Role Phone Heather Medina MD Care Team Information Movement Therapist Unavailable Payers Date Identification Numbers Payment Provider Subscriber Effective: 2011 Policy Number: [id number] [facility] [employer] PayID: [id number] [address] [address] [place] Ort[place] [phone] Effective: 2009 Policy Number: [id number] [facility] [employer] Expires: 2011 PayID: [id number] [address] [address] [place] Ort[place] [phone] Effective: 2014 Policy Number: [id number] [facility] [employer] Onset: 2014 [facility]ID: [facility] C/O Delphine Christiansen [address] [place] [address] Advance Directives Description No Information Available Problems Date Description Provider Status Onset: 12/01/2011 Family history of endocrine disorders Heather Medina MD Active Onset: 08/15/2009 Benign essential hypertension Heather Medina MD Active Onset: 12/30/2004 Mild recurrent major depression Heather Medina MD Active Onset: 12/30/2004 Obesity Heather Medina MD Active Onset: 12/30/2004 Love's palsy Heather Medina MD Active Onset: 01/04/2018 Calculus of bile duct without Heather Medina MD Active obstruction Onset: 01/04/2018 Atherosclerosis of artery Heather Medina MD Active Onset: 01/04/2018 Superficial pain on intercourse Heather Medina MD Active Onset: 01/04/2018 Chronic vascular insufficiency of Heather Medina MD Active intestine Onset: 01/04/2018 Vesicular eczema of hands and/or feet Heather Medina MD Active Onset: 01/04/2018 History of malignant neoplasm of Heather Medina MD Active cervix Onset: 12/22/2014 Carcinoma in situ of uterine cervix Heather Medina MD Resolved Resolved: 01/05/2016 Family History Date Family Member(s) Observation Comments Father Atrial Fibrillation arrhythmia : (age 84 Years) Father due to CHF Father Hypertension Father Congestive Heart Failure Father Liver Disease liver failure Mother Atrial Fibrillation Mother Alzheimer's Disease Mother Celiac Disease Social History Type Date Description Comments Sex Unknown Marital Status Lives with spouse,eldest daughter and her daughter 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 Recreational Drug Use Denies Drug Use Tobacco Use Start: Unknown Patient has never smoked Smoking Status Reviewed: 01/04/18 Patient has never smoked Exercise Type/Frequency Exercises regularly Yoga, some walking; 12/25/16 counselled 150min per week 10k steps per day Allergies, Adverse Reactions, Alerts Date Description Reaction Status Severity Comments 06/02/2014 NKDA Active 12/22/2014 Wheat Active Medications Medication Date Status Form Strength Qnty SIG Indications Ordering Provider Escitalopram Active Tablets 10mg 30tabs 1 by F33.0 Angie, Oxalate 018 mouth MD Heather every day Atorvastatin Active Tablets 10mg 30tabs 1 by I70.8 Angie, Calcium 017 mouth MD Heather every day Aspirin Low Active Chewtabs 81mg 30units 1 by K55.1 Angie, Strength 017 mouth MD Heather daily with food I70.8 Premarin 07/18/2016 Active Cream 0.625mg/GM 30gm fingertip amount N95.2 Angie to irritated MD Heather areas of vulva/vagina twice weekly N94.11 Lisinopril 02/15/2016 Active Tablets 10mg 30tabs take 1 I10 Angie tablet by MD Heather mouth once daily Bactrim DS 09/03/2017 - Hx Tablets 800-16 14tabs Twice Daily Unknown 09/10/2017 0mg Bactrim DS 09/03/2017 - Hx Tablets 800-16 14tabs Twice Daily Unknown 01/03/2018 0mg Hydrocortisone 12/25/2016 - Hx Ointment 2.5% 28.350gm apply to L30. Medina, 01/03/2018 rash on 1 MD Heather fingers 3 times daily until controlled then taper Ursodiol 12/25/2016 - Hx Tablets 500mg 60tabs 1 by mouth K80. Medina, 01/04/2018 twice a day 50 MD Heather Dyazide 01/11/2016 - Hx Capsules 37.5-2 1 tab daily H81. Cristopher Tamayo, 07/18/2016 5mg 09 MD [facility] Acetazolamide 12/25/2015 - Hx Tablets 250mg 30tabs 1 po daily H81.09 [place], 01/30/2016 MD Heather I10 Azithromycin 08/09/2014 - Hx Tablets 500mg 5tabs 1 by mouth 461.8 [place], 08/19/2014 every day MD Heather Naproxen 07/19/2014 - Hx Tablets 500mg 60tabs 1 by mouth M54.2 [place], 12/24/2016 once a day MD Heather with food as needed Multivitamins 06/02/2014 - Hx Chewtabs 100unit 1 by mouth 268.9 [place], 12/24/2016 s every day MD Heather Flaxseed Oil 06/02/2014 - Hx Oil 1 po daily [place], 12/25/2015 MD Heather Vitamin D3 06/02/2014 - Hx Tablets 1000Uni 1 by mouth 268.9 [place] , 12/25/2015 t daily with MD Heather dinner with meat fat oil Cyclobenzaprine 04/03/2014 - Hx Tablets 10mg 60tabs 1 by mouth M54.2 [place], HCL 12/24/2016 three times MD Heather a day as needed, caution sedation Premarin 12/06/2013 - Hx Cream 0.625mg 1Units fingertip N95.2 [place], 07/18/2016 /GM amount to MD Heather irritated areas of vulva/vagin a twice weekly N94.11 Escitalopram 01/14/2012 - Hx Tablets 20mg 15tabs take 1 / F33.0 [place], Oxalate 06/29/2017 2 tablet MD Heather by mouth once daily Lisinopril 08/15/2009 - Hx Tablets 10mg 30tabs take 1 I10 Medina, 01/18/2016 tablet MD Heather by mouth once daily Ergocalciferol - Hx Capsules [id number] 1 po qd Unknown 06/02/2014 it Calcium - Hx Tablets 600-400 take 1 Unknown Carbonate-Vitamin 12/25/2015 mg-Unit tablet D by mouth two times a day Omeprazole - Hx Capsules DR 20mg Unknown 12/24/2016 Immunizations CPT Code Status Date Vaccine Reaction Lot # [id number] Given 01/04/2018 Tdap (Adacel) Ages 7 And Above Only [id number] Given 02/11/2017 Flu Vaccine NOS [id number] Given 07/17/2007 Tdap (Adacel) Ages 7 And Above Only [id number] Refused 07/07/2018 Flu Vaccine NOS [id number] Refused 07/07/2018 Shingrix (Shingles) Zoster aware can get at pharmacy Vaccine HZV, Recombinant, Subunit, Adj [id number] Refused 01/04/2018 Flu Vaccine NOS [id number] Refused 07/18/2016 Influenza Virus Vaccine,Quadrivalent,Split,Prese rv Free, 0.5mL,Im Vital Signs Date Vital Result Comment 07/07/2018 4:00pm Weight 196.00 lb Heart Rate 68 /min BP Systolic 128 mmHg BP Diastolic 72 mmHg Respiratory Rate 14 /min Height 67.25 inches 5'7.25" O2 % BldC Oximetry 98 % ra BMI (Body Mass Index) 30.5 kg/m2 01/04/2018 1:33pm Weight 213.00 lb Heart Rate 78 /min BP Systolic 114 mmHg BP Diastolic 76 mmHg Respiratory Rate 18 /min Height 67.25 inches 5'7.25" BMI (Body Mass Index) 33.1 kg/m2 06/29/2017 4:12pm Weight 220.00 lb Heart Rate 72 /min BP Systolic 114 mmHg BP Diastolic 72 mmHg Respiratory Rate 14 /min Height 68.25 inches 5'8.25" BMI (Body Mass Index) 33.2 kg/m2 02/06/2017 4:08pm Weight 224.00 lb Heart Rate 72 /min BP Systolic 128 mmHg BP Diastolic 62 mmHg Respiratory Rate 16 /min Height 68.25 inches 5'8.25" BMI (Body Mass Index) 33.8 kg/m2 12/25/2016 8:32am Weight 224.00 lb Heart Rate 74 /min BP Systolic 114 mmHg BP Diastolic 78 mmHg Respiratory Rate 16 /min Height 68.25 inches 5'8.25" BMI (Body Mass Index) 33.8 kg/m2 12/01/2016 1:49pm Weight 226.00 lb Heart Rate 69 /min BP Systolic 110 mmHg BP Diastolic 66 mmHg Respiratory Rate 18 /min Height 68 inches BMI (Body Mass Index) 34.4 kg/m2 11/21/2016 10:25am Body Temperature 98.4 F Weight 227.00 lb Heart Rate 74 /min BP Systolic 120 mmHg BP Diastolic 74 mmHg Respiratory Rate 16 /min Height 68 inches 5'8" O2 % BldC Oximetry 97 % BMI (Body Mass Index) 34.5 kg/m2 07/18/2016 8:42am Weight 231.00 lb Heart Rate 76 /min BP Systolic 130 mmHg BP Diastolic 78 mmHg Respiratory Rate 16 /min Height 68 inches 5'8" 12/25/15 SA BMI (Body Mass Index) 35.1 kg/m2 01/30/2016 4:14pm Weight 227.00 lb Heart Rate 78 /min BP Systolic 128 mmHg BP Diastolic 80 mmHg Respiratory Rate 12 /min Height 68 inches 5'8" 12/25/15 SA BMI (Body Mass Index) 34.5 kg/m2 12/25/2015 3:32pm Weight 235.00 lb Heart Rate 84 /min BP Systolic 118 mmHg BP Diastolic 74 mmHg Respiratory Rate 12 /min Height 68 inches 5'8" 12/25/15 SA BMI (Body Mass Index) 35.7 kg/m2 06/26/2015 4:00pm Weight 235.00 lb Heart Rate 74 /min BP Systolic 120 mmHg BP Diastolic 68 mmHg Respiratory Rate 18 /min Height 68 inches 5'8" BMI (Body Mass Index) 35.7 kg/m2 12/22/2014 9:49am Weight 227.00 lb Heart Rate 74 /min BP Systolic 120 mmHg BP Diastolic 80 mmHg Respiratory Rate 18 /min Height 68 inches 5'8" BMI (Body Mass Index) 34.5 kg/m2 08/09/2014 10:15am Body Temperature 98.4 F Weight 224.00 lb Heart Rate 84 /min BP Systolic 130 mmHg BP Diastolic 80 mmHg Respiratory Rate 18 /min Height 68 inches 5'8" O2 % BldC Oximetry 95 % Ra BMI (Body Mass Index) 34.1 kg/m2 07/19/2014 3:47pm Weight 230.00 lb Heart Rate 72 /min BP Systolic 120 mmHg BP Diastolic 78 mmHg Respiratory Rate 18 /min Height 68 inches 5'8" BMI (Body Mass Index) 35.0 kg/m2 06/05/2014 10:46am Weight 220.00 lb Heart Rate 74 /min BP Systolic 124 mmHg BP Diastolic 82 mmHg Respiratory Rate 18 /min Height 68 inches 5'8" BMI (Body Mass Index) 33.4 kg/m2 06/02/2014 2:50pm Weight 220.00 lb Heart Rate 74 /min BP Systolic 120 mmHg BP Diastolic 72 mmHg Respiratory Rate 18 /min Height 68 inches 5'8" BMI (Body Mass Index) 33.4 kg/m2 04/21/2014 3:56pm Weight 229.00 lb Heart Rate 74 /min BP Systolic 120 mmHg BP Diastolic 80 mmHg Respiratory Rate 18 /min Height 68 inches 5'8" 04/03/2014 4:53pm Body Temperature 99.6 F Weight 230.00 lb Heart Rate 76 /min BP Systolic 112 mmHg BP Diastolic 74 mmHg Respiratory Rate 18 /min Height 68 inches 5'8" 12/27/2013 9:02am Weight 226.00 lb Heart Rate 72 /min BP Systolic 120 mmHg BP Diastolic 78 mmHg Respiratory Rate 18 /min Height 68 inches 5'8" 12/06/2013 2:58pm Weight 223.50 lb Heart Rate 72 /min BP Systolic 114 mmHg BP Diastolic 74 mmHg Respiratory Rate 18 /min Height 67.75 inches 5'7.75" 09/07/2013 4:24pm Body Temperature 97.0 F Weight 219.00 lb Heart Rate 76 /min BP Systolic 100 mmHg Lay-112/72 Sit-100/70 Stand 100/72 BP Diastolic 70 mmHg Lay-112/72 Sit-100/70 Stand 100/72 Respiratory Rate 18 /min Height 68 inches 5'8" 06/24/2013 10:05am Weight 225.00 lb Heart Rate 72 /min BP Systolic 120 mmHg BP Diastolic 82 mmHg Respiratory Rate 18 /min Height 68 inches 5'8" 02/01/2013 3:17pm Weight 226.00 lb Heart Rate 76 /min BP Systolic 120 mmHg BP Diastolic 80 mmHg Respiratory Rate 18 /min 12/03/2012 8:43am Weight 221.06 lb Heart Rate 72 /min BP Systolic 110 mmHg BP Diastolic 72 mmHg Respiratory Rate 16 /min Height 68 inches 5'8" 06/11/2012 4:26pm Body Temperature 97.9 F Weight 229.00 lb Heart Rate 70 /min BP Systolic 112 mmHg BP Diastolic 88 mmHg Respiratory Rate 18 /min Height 68 inches 5'8" 12/01/11 12/01/2011 1:37pm Weight 223.00 lb Heart Rate 70 /min BP Systolic 120 mmHg BP Diastolic 84 mmHg Respiratory Rate 17 /min Height 68 inches 5'8" 12/01/11 06/02/2011 9:32am Weight 237.00 lb Heart Rate 72 /min BP Systolic 130 mmHg BP Diastolic 84 mmHg Respiratory Rate 18 /min Height 67.75 inches 5'7.75" 11/20/2010 1:57pm Weight 225.00 lb Heart Rate 72 /min BP Systolic 110 mmHg L/Adult BP Diastolic 70 mmHg L/Adult Respiratory Rate 17 /min Height 67.75 inches 5'7.75" 03/25/2010 10:58am Weight 219.00 lb Heart Rate 80 /min BP Systolic 104 mmHg LEFT BP Diastolic 68 mmHg LEFT Respiratory Rate 16 /min 09/27/2009 11:17am Weight 222.00 lb Heart Rate 86 /min BP Systolic 126 mmHg R LG BP Diastolic 80 mmHg R LG Respiratory Rate 16 /min 08/15/2009 3:33pm Weight 221.00 lb Heart Rate 86 /min BP Systolic 132 mmHg BP Diastolic 88 mmHg Respiratory Rate 17 /min Height 68 inches 5'8" 07/27/2009 11:26am BP Systolic 138 mmHg BP Diastolic 98 mmHg 07/27/2009 11:26am Weight 223.00 lb Heart Rate 74 /min BP Systolic 140 mmHg standing 140/98 BP Diastolic 98 mmHg standing 140/98 Respiratory Rate 15 /min 04/11/2009 11:17am Weight 226.00 lb Heart Rate 78 /min BP Systolic 130 mmHg BP Diastolic 90 mmHg Respiratory Rate 15 /min 10/06/2008 1:28pm Weight 224.00 lb Heart Rate 80 /min BP Systolic 132 mmHg BP Diastolic 86 mmHg Respiratory Rate 16 /min 09/29/2008 2:13pm Weight 223.00 lb Heart Rate 66 /min BP Systolic 120 mmHg BP Diastolic 78 mmHg Respiratory Rate 14 /min 04/25/2008 3:42pm Weight 228.00 lb Heart Rate 78 /min BP Systolic 160 mmHg BP Diastolic 100 mmHg Respiratory Rate 16 /min Height 68 inches 5'8" 04/04/2008 1:04pm Weight 236.00 lb Heart Rate 76 /min BP Systolic 126 mmHg BP Diastolic 82 mmHg Respiratory Rate 16 /min Height 68 inches 5'8" 01/03/2008 8:50am Weight 214.00 lb Heart Rate 80 /min BP Systolic 126 mmHg BP Diastolic 80 mmHg Respiratory Rate 16 /min Height 68 inches 5'8" 11/30/2007 11:36am BP Systolic 150 mmHg BP Diastolic 100 mmHg 11/30/2007 11:36am Weight 211.00 lb Heart Rate 74 /min BP Systolic 140 mmHg BP Diastolic 96 mmHg Respiratory Rate 18 /min Height 68 inches 5'8" 12/30/2004 9:42am Weight 206.00 lb Heart Rate 60 /min BP Systolic 118 mmHg large cuff LEFT arm BP Diastolic 76 mmHg large cuff LEFT arm Respiratory Rate 16 /min Height 68 inches 5'8" Results Test Date Facility Test Result H/L Range Note Comprehensive Met Panel-[facility] 06/30/2018 [facility] Sodium 142 mmol/L 135- 146 1, 2 Potassium 4.0 mmol/L 3.5-5.2 Chloride# 104 mmol/L 97-110 3 Carbon Dioxide 29 mmol/L 24-34 Glucose 95 mg/dL 70-105 BUN 12 mg/dL 6-26 Creatinine 0.8 mg/dL 0.5-1.4 Calcium 9.3 mg/dL 8.5-10.2 Total Protein 6.9 g/dL 6.0-8.0 Albumin 4.1 g/dL 3.6-4.9 Globulin 2.8 g/dL 2.0-3.5 A/G Ratio 1.5 Ratio 1.0-2.2 Total Bilirubin 0.4 mg/dL 0.1-1.3 Alkaline Phosphatase 95 U/L 24-140 Alt 12 U/L 3-42 Ast 16 U/L 8-42 Anion Gap 9 mmol/L 5-15 4 Abby Egfr >60 >60 5 Non Abby Egfr >60 >60 6 Laboratory test finding 06/30/2018 [facility] 27 U/L 12-199 Lipid 06/30/2018 [facility] Cholesterol 144 mg/dL 50-199 Triglycerides 84 mg/dL 30-200 HDL 52 mg/dL 35-85 7 Chol/ HDL Ratio 2.8 ratio Low 3.7-5.6 VLDL 17 mg/dL 2-29 LDL (Calc) 75 mg/dL 20-99 8 Laboratory test 01/04/2018 [facility] Pap Smear Thin Prep ok 9 finding Lipid 12/25/2017 [facility] Cholesterol 206 mg/dL High 50-199 10 Triglycerides 131 mg/dL 30-200 HDL 62 mg/dL 35-85 11 Chol/ HDL Ratio 3.3 ratio Low 3.7-5.6 VLDL 26 mg/dL 2-29 LDL (Calc) 117 mg/dL High 20-99 12 Laboratory test finding 12/25/2017 [facility] CPK 34 U/L 12-199 Comprehensive Met Panel-[facility] 12/25/2017 [facility] Sodium 138 mmol/L 135- 146 13 Potassium 4.4 mmol/L 3.5-5.2 Chloride# 103 mmol/L 97-110 14 Carbon Dioxide 26 mmol/L 24-34 Glucose 106 mg/dL High 70-105 BUN 14 mg/dL 6-26 Creatinine 0.8 mg/dL 0.5-1.4 Calcium 9.2 mg/dL 8.5-10.2 Total Protein 7.4 g/dL 6.0-8.0 Albumin 4.3 g/dL 3.6-4.9 Globulin 3.1 g/dL 2.0-3.5 A/G Ratio 1.4 Ratio 1.0-2.2 Total Bilirubin 0.4 mg/dL 0.1-1.3 Alkaline Phosphatase 98 U/L 24-140 Alt 15 U/L 3-42 Ast 13 U/L 8-42 Abby Egfr >60 >60 15 Non Abby Egfr >60 >60 16 Anion Gap 9 mmol/L 5-15 17 CBC With Auto Diff 12/25/2017 [facility] WBC 8.0 K/uL 4.1-11.0 RBC 4.61 M/uL 4.00-5.40 Hemoglobin 14.2 gm/dL 12.0-16.0 Hematocrit 42.1 % 36.0-47.0 MCV 91.1 fL 80.0-97.0 MCH 30.8 pg 27.0-32.0 MCHC 33.8 g/dL 32.0-36.0 RDW 13.0 % 11.5-14.5 PLT Count 229 K/ul 140-400 MPV 9.3 FL 7.1-10.7 Neutrophil 49.6 % 35.0-75.0 Lymphocyte 39.4 % 16.0-52.0 Monocyte 8.4 % 2.0-10.0 Eosinophil 2.3 % 0.0-5.0 Basophil 0.3 % 0.0-4.0 Abs Neutrophils 4.0 K/uL 2.1-8.0 Abs Lymphocytes 3.2 K/uL 0.8-5.5 Abs Monocytes 0.7 K/uL 0.1-1.0 Abs Eosinophils 0.2 K/uL 0.0-0.5 Abs Basophils 0.0 K/uL 0.0-0.3 Lipid 06/26/2017 [facility] Cholesterol 148 mg/dL 50-199 18 Triglycerides 113 mg/dL 30-200 HDL 51 mg/dL 35-85 19 Chol/ HDL Ratio 2.9 ratio Low 3.7-5.6 VLDL 23 mg/dL 2-29 LDL (Calc) 74 mg/dL 20-99 20 Laboratory test finding 06/26/2017 [facility] CPK 42 U/L 12-199 Comprehensive Met Panel-[facility] 06/26/2017 [facility] Sodium 141 mmol/L 135- 146 21 Potassium 4.5 mmol/L 3.5-5.2 Chloride# 103 mmol/L 97-110 22 Carbon Dioxide 27 mmol/L 24-34 Glucose 92 mg/dL 70-105 BUN 11 mg/dL 6-26 Creatinine 0.8 mg/dL 0.5-1.4 Calcium 9.6 mg/dL 8.5-10.2 Total Protein 7.5 g/dL 6.0-8.0 Albumin 4.7 g/dL 3.6-4.9 Globulin 2.8 g/dL 2.0-3.5 A/G Ratio 1.7 Ratio 1.0-2.2 Total Bilirubin 0.5 mg/dL 0.1-1.3 Alkaline Phosphatase 94 U/L 24-140 Alt 23 U/L 3-42 Ast 19 U/L 8-42 Abby Egfr >60 >60 23 Non Abby Egfr >60 >60 24 Anion Gap 11 mmol/L 5-15 25 Laboratory test finding 02/09/2017 [facility] CK 57 U/L N 26-192 (315)- - Comprehensive Metabolic 02/09/2017 [facility] Glucose 107 mg/dL High 74-106 Panel (315)- - BUN 15 mg/dL N 7-18 Creatinine 0.8 mg/dL N 0.6-1.3 Glom Filtration Rate, Estimate >60 mL/min >60 If >60 mL/min >60 26 BUN/Creat 18.7 ratio Sodium 143 mmol/L N 136-145 Potassium 4.0 mmol/L N 3.5-5.1 Chloride 109 mmol/L High 98-107 Carbon Dioxide 26 mmol/L N 21-32 Anion Gap 8 mEq/L N 8-16 Calcium 8.6 mg/dL N 8.5-10.1 Total Protein 7.6 g/dL N 6.4-8.2 Albumin 3.6 g/dL N 3.4-5.0 Globulin 4.0 g/dL N 1.9-4.3 Alb/Glob 0.9 ratio Bilirubin,Total 0.4 mg/dL N 0.2-1.0 Sgot/Ast 15 U/L N 15-37 SGPT/Alt 23 U/L N 12-78 Alkaline Phosphatase 112 U/L N 45-117 Lipid Panel 02/09/2017 [facility] Cholesterol 164 mg/dL <200 27 (315)- - Triglycerides 175 mg/dL High <150 28 HDL Cholesterol 62 mg/dL >40 29 LDL-Cholesterol 67 mg/dL < 100 30 Laboratory test 12/25/2016 [facility] Pap Smear Thin ok, neg T zone 31 finding Prep CBC With Auto Diff 12/18/2016 [facility] WBC 5.7 K/uL 4.1-11.0 32 RBC 4.51 M/uL 4.00-5.40 Hemoglobin 13.8 gm/dL 12.0-16.0 Hematocrit 41.3 % 36.0-47.0 MCV 91.4 fL 80.0-97.0 MCH 30.6 pg 27.0-32.0 MCHC 33.5 g/dL 32.0-36.0 RDW 13.4 % 11.5-14.5 PLT Count 196 K/ul 140-400 Neutrophil 46.3 % 35.0-75.0 Lymphocyte 40.9 % 16.0-52.0 Monocyte 9.2 % 2.0-10.0 Eosinophil 3.0 % 0.0-5.0 Basophil 0.6 % 0.0-4.0 Abs Neutrophils 2.6 K/uL 2.1-8.0 Abs Lymphocytes 2.3 K/uL 0.8-5.5 Abs Monocytes 0.5 K/uL 0.1-1.0 Abs Eosinophils 0.2 K/uL 0.0-0.5 Abs Basophils 0.0 K/uL 0.0-0.3 Lipid 12/18/2016 [facility] Cholesterol 188 mg/dL 50-199 Triglycerides 159 mg/dL 30-200 HDL 49 mg/dL 35-85 33 Chol/ HDL Ratio 3.8 ratio 3.7-5.6 VLDL 32 mg/dL High 2-29 LDL (Calc) 107 mg/dL High 20-99 34 Comprehensive Met Panel-[facility] 12/18/2016 [facility] Sodium 140 mmol/L 135- 146 35 Potassium 4.1 mmol/L 3.5-5.2 Chloride# 105 mmol/L 97-110 36 Carbon Dioxide 28 mmol/L 24-34 Glucose 104 mg/dL 70-105 BUN 13 mg/dL 6-26 Creatinine 0.9 mg/dL 0.5-1.4 Calcium 9.3 mg/dL 8.5-10.2 Total Protein 7.2 g/dL 6.0-8.0 Albumin 4.3 g/dL 3.6-4.9 Globulin 2.9 g/dL 2.0-3.5 A/G Ratio 1.5 Ratio 1.0-2.2 Total Bilirubin 0.5 mg/dL 0.1-1.3 Alkaline Phosphatase 94 U/L 24-140 Alt 23 U/L 3-42 Ast 20 U/L 8-42 Abby Egfr >60 >60 37 Non Abby Egfr >60 >60 38 Anion Gap 7 mmol/L 7-16 39 Microalb/Creat Panel 12/18/2016 [facility] Creatinine, Urine 201.9 mg/dL 40 Microalbumin < 5.0 ug/ml 5.0-20.0 Basic (BMP) 07/18/2016 [facility] Sodium 143 mmol/L High 134-142 41 Potassium 5.0 mmol/L 3.5-5.2 Chloride 105 mmol/L 97-109 Carbon Dioxide 27 mmol/L 24-34 Glucose 91 mg/dL 70-105 BUN 13 mg/dL 6-26 Creatinine 0.8 mg/dL 0.5-1.4 Calcium 9.2 mg/dL 8.5-10.2 Anion Gap 16 mmol/L High 6-14 Non Abby Egfr >60 >60 42 Abby Egfr >60 >60 43 Laboratory test 07/18/2016 [facility] Hepatitis C Virus NONREACTIVE Nonreactive finding Antibody Basic (BMP) 02/11/2016 [facility] Sodium 138 mmol/L 134-142 44 Potassium 4.1 mmol/L 3.5-5.2 Chloride 103 mmol/L 97-109 Carbon Dioxide 27 mmol/L 24-34 Glucose 89 mg/dL 70-105 BUN 14 mg/dL 6-26 Creatinine 0.8 mg/dL 0.5-1.4 Calcium 9.3 mg/dL 8.5-10.2 Anion Gap 12 mmol/L 6-14 Non Abby Egfr >60 >60 45 Abby Egfr >60 >60 46 Laboratory test 12/25/2015 [facility] [place] [facility] ALLIA ut 47 finding [phone] <SEE NOTE> CBC With Auto Diff 12/20/2015 [facility] WBC 7.2 K/uL 4.1-11.0 RBC 4.45 M/uL 4.00-5.40 Hemoglobin 13.8 gm/dL 12.0-16.0 Hematocrit 40.3 % 36.0-47.0 MCV 90.4 fL 80.0-97.0 MCH 31.1 pg 27.0-32.0 MCHC 34.4 g/dL 32.0-36.0 RDW 12.9 % 11.5-14.5 PLT Count 230 K/ul 140-400 Neutrophil 46.2 % 35.0-75.0 Lymphocyte 43.3 % 16.0-52.0 Monocyte 8.0 % 2.0-10.0 Eosinophil 2.2 % 0.0-5.0 Basophil 0.3 % 0.0-4.0 Abs Neutrophils 3.3 K/uL 2.1-8.0 Abs Lymphocytes 3.1 K/uL 0.8-5.5 Abs Monocytes 0.6 K/uL 0.1-1.0 Abs Eosinophils 0.2 K/uL 0.0-0.5 Abs Basophils 0.0 K/uL 0.0-0.3 Comprehensive Metabolic (CMP) 12/20/2015 [facility] Sodium 133 mmol/L Low 134-142 Potassium 4.3 mmol/L 3.5-5.2 Chloride 100 mmol/L 97-109 Carbon Dioxide 28 mmol/L 24-34 Glucose 107 mg/dL High 70-105 BUN 13 mg/dL 6-26 Creatinine 0.8 mg/dL 0.5-1.4 Calcium 9.1 mg/dL 8.5-10.2 Total Protein 7.1 g/dL 6.0-8.0 Albumin 4.2 g/dL 3.6-4.9 Globulin 2.9 g/dL 2.0-3.5 A/G Ratio 1.4 Ratio 1.0-2.2 Total Bilirubin 0.5 mg/dL 0.1-1.3 Alkaline Phosphatase 92 U/L 24-140 Alt 22 U/L 3-42 Ast 18 U/L 8-42 Anion Gap 9 mmol/L 10-29 Abby Egfr >60 >60 48 Non Abby Egfr >60 >60 49 Microalb/Creat Panel 12/20/2015 [facility] Creatinine, Urine 105.5 mg/dL 50 Microalbumin < 5.0 ug/ml 5.0-20.0 Lipid 12/20/2015 [facility] Cholesterol 185 mg/dL 50-199 Triglycerides 204 mg/dL High 30-200 HDL 47 mg/dL 35-85 51 Chol/ HDL Ratio 3.9 ratio 3.7-5.6 VLDL 41 mg/dL High 2-29 LDL (Calc) 97 mg/dL 20-99 52 Basic (BMP) 06/28/2015 [facility] Sodium 137 mmol/L 134-142 53 Potassium 4.5 mmol/L 3.5-5.2 Chloride 104 mmol/L 97-109 Carbon Dioxide 28 mmol/L 24-34 Glucose 108 mg/dL High 70-105 BUN 12 mg/dL 6-26 Creatinine 0.7 mg/dL 0.5-1.4 Calcium 9.6 mg/dL 8.5-10.2 Anion Gap 10 mmol/L 10-29 Non Abby Egfr >60 >60 54 Abby Egfr >60 >60 55 Laboratory test finding 12/22/2014 [facility] Pap Smear Thin Prep ok 56, 57 Microalb/Creat Panel 12/18/2014 [facility] Creatinine, Urine 169.6 mg/dL Microalb/Creat Urine 3.24 ug/mgCreat 0.00-30.00 Microalbumin 5.5 ug/ml 0.0-20.0 Lipid 12/18/2014 [facility] Cholesterol 191 mg/dL 50-199 Triglycerides 170 mg/dL 30-200 HDL 43 mg/dL 35-85 58 Chol/ HDL Ratio 4.4 ratio 3.7-5.6 VLDL 34 mg/dL High 2-29 LDL (Calc) 114 mg/dL High 20-99 59 Comprehensive Metabolic (CMP) 12/18/2014 [facility] Sodium 136 mmol/L 134- 142 Potassium 4.2 mmol/L 3.5-5.2 Chloride 103 mmol/L 97-109 Carbon Dioxide 26 mmol/L 24-34 Glucose 97 mg/dL 70-105 BUN 16 mg/dL 6-26 Creatinine 0.8 mg/dL 0.5-1.4 Calcium 9.1 mg/dL 8.5-10.2 Total Protein 7.4 g/dL 6.0-8.0 Albumin 4.5 g/dL 3.6-4.9 Globulin 2.9 g/dL 2.0-3.5 A/G Ratio 1.6 Ratio 1.0-2.2 Total Bilirubin 0.4 mg/dL 0.1-1.3 Alkaline Phosphatase 97 U/L 24-140 Alt 15 U/L 3-42 Ast 13 U/L 8-42 Anion Gap 11 mmol/L 6-14 Abby Egfr >60 >60 60 Non Abby Egfr >60 >60 61 CBC With Auto Diff 12/18/2014 [facility] WBC 7.4 K/uL 4.1-11.0 RBC 4.71 M/uL 4.00-5.40 Hemoglobin 14.6 gm/dL 12.0-16.0 Hematocrit 43.1 % 36.0-47.0 MCV 91.4 fL 80.0-97.0 MCH 30.9 pg 27.0-32.0 MCHC 33.8 g/dL 32.0-36.0 RDW 12.9 % 11.5-14.5 PLT Count 251 K/ul 140-400 Neutrophil 44.2 % 35.0-75.0 Lymphocyte 45.7 % 16.0-52.0 Monocyte 6.9 % 2.0-10.0 Eosinophil 2.8 % 0.0-5.0 Basophil 0.4 % 0.0-4.0 Abs Neutrophils 3.3 K/uL 2.1-8.0 Abs Lymphocytes 3.4 K/uL 0.8-5.5 Abmon 0.5 K/uL 0.1-1.0 Abs Eosinophils 0.2 K/uL 0.0-0.5 Abs Basophils 0.0 K/uL 0.0-0.3 Laboratory test finding 12/16/2013 N2N/CCD Import % Baso. 0.9 % 0.0-2.0 % Eos. 2.3 % 0.0-4.0 % Lymph 37 % 20-44 % [place] 8.0 % 2.0-10.0 % Vishnu 52 % 50-70 A/G Ratio 1.4 ratio Low 1.6-2.2 Absolute Baso. 0.1 K/ul 0.0-0.3 Absolute Eos. 0.2 K/ul 0.0-0.5 Absolute Lymph. 3.1 K/ul 0.8-4.8 Absolute [place]. 0.7 K/ul 0.1-1.0 Absolute Vishnu. 4.36 K/ul 2.05-7.63 Albumin 4.3 g/dL 3.5-5.0 Alk. Phos. 116.0 U/L 30.0-126.0 Alt 20.0 U/L 9.0-52.0 Anion Gap 9.0 mmol/L Low 10.0-20.0 Ast 16.0 U/L 14.0-36.0 BUN 13.0 mg/dL 7.0-18.0 BUN/Creat Ratio 16.3 ratio 12.0-20.0 Calcium 9.1 mg/dL 8.7-10.5 Chloride 106.0 mmol/L 98.0-107.0 Co2 25.0 mmol/L 22.0-30.0 Creatinine-Serum 0.8 mg/dL 0.7-1.2 Globulin 3.0 g/dL 2.7-4.3 Glucose 103.0 mg/dL 75.0-110.0 HCT 42.1 % 37.0-51.0 HGB 14.5 Gm/dl 12.0-16.0 MCH 31.3 pg 26.0-32.0 MCHC 34.5 g/dL 31.0-36.0 MCV 90.6 Fl 80.0-97.0 MPV 8.0 fL 6.0-10.0 PLT 272 K/ul 140-440 [place] 4.7 mmol/L 3.6-5.0 RBC 4.7 M/ul 4.2-6.3 RDW 12.0 % 11.5-14.5 Sodium 140.0 mmil/L 137.0-145.0 Total Bilirubin 0.3 mg/dL 0.2-1.3 Total Protein 7.3 g/dL 6.3-8.2 Vitamin D 39.8 ng/mL 30.0-100.0 WBC 8.4 K/ul 4.1-10.9 eGFR 82.2 mi/minper1.73 62 Lipid Panel 12/16/2013 N2N/CCD Import Chol/HDL Ratio 4.0 ratio Cholesterol 187.0 mg/dL 50.0-199.0 HDL 47.0 mg/dL 29.0-86.0 LDL, Calculated 113.0 mg/dL 20.0-129.0 Triglycerides 135.0 mg/dL 30.0-249.0 vLDL 27.0 ng/dL Urine Microalbumin/Creat 12/16/2013 N2N/CCD Import Urine Creatinine 39.4 mg /dL Urine Microalbumin <5.0 mg/L <18.5 63 Laboratory test 12/07/2013 N2N/CCD Import [id number] ok ok 62 finding Laboratory test 06/24/2013 N2N/CCD Import BUN 16.0 mg/dL 7.0-18.0 finding BUN/Creat Ratio 20.0 ratio 12.0-20.0 Calcium 10.1 mg/dL 8.7-10.5 Chloride 103.0 mmol/L 98.0-107.0 Co2 27.0 mmol/L 22.0-30.0 Creatinine-Serum 0.8 mg/dL 0.7-1.2 Glucose 91.0 mg/dL 75.0-110.0 Potasium 4.6 mmol/L 3.6-5.0 Sodium 139.0 mmil/L 137.0-145.0 eGFR 79.4 Laboratory test 12/03/2012 N2N/CCD Import Cytology Pap ok 65 finding Urine 12/03/2012 N2N/CCD Import Microalb/Creat 2.8 0.0-30.0 Microalbumin/Creat Ratio ug/ngcrt Urine Creatinine 213.1 mg/dL Urine Microalbumin 5.9 mg/L <18.5 Laboratory test finding 12/03/2012 N2N/CCD Import % Baso. 0.9 % 0.0-2.0 % Eos. 2.8 % 0.0-4.0 % Lymph 41 % 20-44 % [place] 10.5 % High 2.0-10.0 % Vishnu 45 % Low 50-70 A/G Ratio 1.4 ratio Low 1.6-2.2 Absolute Baso. 0.1 K/ul 0.0-0.3 Absolute Eos. 0.2 K/ul 0.0-0.5 Absolute Lymph. 2.8 K/ul 0.8-4.8 Absolute [place]. 0.7 K/ul 0.1-1.0 Absolute Vishnu. 3.14 K/ul 2.05-7.63 Albumin 4.4 g/dL 3.5-5.0 Alk. Phos. 122.0 U/L 30.0-126.0 Alt 21.0 U/L 9.0-52.0 Anion Gap 12.0 mmol/L 10.0-20.0 Ast 17.0 U/L 14.0-36.0 BUN 11.0 mg/dL 7.0-18.0 BUN/Creat Ratio 12.2 ratio 12.0-20.0 Calcium 9.6 mg/dL 8.7-10.5 Chloride 104.0 mmol/L 98.0-107.0 Co2 24.0 mmol/L 22.0-30.0 Creatinine-Serum 0.9 mg/dL 0.7-1.2 Globulin 3.1 g/dL 2.7-4.3 Glucose 101.0 mg/dL 75.0-110.0 HCT 41.7 % 37.0-51.0 HGB 13.9 Gm/dl 12.0-16.0 MCH 30.4 pg 26.0-32.0 MCHC 33.3 g/dL 31.0-36.0 MCV 91.3 Fl 80.0-97.0 MPV 7.9 fL 6.0-10.0 PLT 260 K/ul 140-440 [place] 4.6 mmol/L 3.6-5.0 RBC 4.6 M/ul 4.2-6.3 RDW 11.4 % Low 11.5-14.5 Sodium 140.0 mmil/L 137.0-145.0 Total Bilirubin 0.4 mg/dL 0.2-1.3 Total Protein 7.5 g/dL 6.3-8.2 WBC 7.0 K/ul 4.1-10.9 eGFR 76.0 mi/minper1.73 66 Lipid Panel 12/03/2012 N2N/Kin[employer] Import Chol/HDL Ratio 4.2 ratio Cholesterol 174.0 mg/dL 50.0-199.0 HDL 41.0 mg/dL 29.0-86.0 LDL, Calculated 105.8 mg/dL 20.0-129.0 Triglycerides 136.0 mg/dL 30.0-249.0 vLDL 27.2 ng/dL Laboratory test finding 07/05/2012 [employer] Import BUN 13.0 mg/dL 7.0- 18.0 BUN/Creat Ratio 16.3 ratio 12.0-20.0 Calcium 9.9 mg/dL 8.7-10.5 Chloride 103.0 mmol/L 98.0-107.0 Co2 26.0 mmol/L 22.0-30.0 Creatinine-Serum 0.8 mg/dL 0.7-1.2 Glucose 111.0 mg/dL High 75.0-110.0 [place] 4.1 mmol/L 3.6-5.0 Sodium 140.0 mmil/L 137.0-145.0 eGFR 79.7 Lipid Panel 12/01/2011 N2N/Kineta Import Chol/HDL Ratio 3.1 67, 68 Cholesterol 207 mg/dL High 50-199 HDL Cholesterol 65 mg/dL 29-86 LDL 110 mg/dL 20-129 Triglycerides 160 mg/dL 30-249 VLDL Cholesterol 32 mg/dL Laboratory test finding 12/01/2011 N2N/[employer] Import Cytology Pap See Note ok 69 Microalbumin,Urine < 5.0 mg/L 0.0-18.5 Microalbumin/Creatinine Ratio See Note ug/mgCrt 0.0-30.0 70 Urine Creatinine Conc 48 mg/dL A/G Ratio 1.3 1.0-2.2 Absolute Basophils 0.071 K/ul 0.0-0.3 Absolute Eosinophils 0.090 K/ul 0.0-0.5 Absolute Lymphocytes 2.74 K/ul 0.8-4.8 Absolute Monocytes 0.690 K/ul 0.1-1.0 Absolute Neutrophils 6.04 K/ul 2.05-7.63 Albumin 4.5 g/dL 3.5-5.0 Alkaline Phosphatase 132 U/L High 30-126 Alt 31 U/L 9-52 Ast 24 U/L 14-36 BUN 16 mg/dL 7-18 BUN/CR Ratio 21.3 Ratio High 12-20 Basophil 0.7 % 0-2 Calcium 9.4 mg/dL 8.7-10.5 Carbon Dioxide 26 mmol/L 22-30 Chloride 101 mmol/L 98-107 Creatinine, Serum 0.7 mg/dL 0.7-1.2 Eosinophil 0.9 % 0-4 Globulin 3.5 g/dL 2.7-4.3 Glucose 97 mg/dL 65-105 Hematocrit 46.3 % 37.0-51.0 Hemoglobin 14.8 GM/dl 12.0-16.0 Lymphocytes 28.5 % 20-44 MCH 29.7 pg 26.0-32.0 MCHC 32.1 g/dL 31.0-36.0 MCV 93 FL 80-97 Monocytes 7.2 % 2-10.0 Neutrophils 62.7 % 50-70 Platelet Count 263 K/ul 140-440 Potassium 4.6 mmol/L 3.6-5.0 RBC 4.99 M/ul 4.2-6.3 RDW 12.0 % 11.5-14.5 Sodium 138 mmol/L 137-145 Total Bilirubin 0.8 mg/dL 0.2-1.3 Total Protein 7.9 g/dL 6.3-8.2 WBC 9.6 K/ul 4.1-10.9 Laboratory test finding 06/02/2011 N2N/CCD Import Anion Gap 16 mmol/L 10 -20 71 BUN 15 mg/dL 7-18 BUN/CR Ratio 18.4 Ratio 12-20 Calcium 9.3 mg/dL 8.7-10.5 Carbon Dioxide 28 mmol/L 22-30 Chloride 101 mmol/L 98-107 Creatinine, Serum 0.8 mg/dL 0.7-1.2 Glucose 87 mg/dL 65-105 Potassium 4.6 mmol/L 3.6-5.0 Sodium 140 mmol/L 137-145 Laboratory test finding 11/21/2010 N2N/Kineta Import Cytology Pap See Note ok 72 Microalbumin,Urine < 6.0 mg/L 0.0-15.0 Microalbumin/Creatinine Ratio See Note 73 Urine Creatinine Conc 88 mg/dL Laboratory test 11/13/2010 N2N/[employer]eta Import Vitamin 64.8 ng/mL 32.0-100.0 74, 75 finding D,25-Hydroxy Lipid Panel 11/13/2010 N2N/CCD Import Chol/HDL Ratio 3.5 76 Cholesterol 196 mg/dL 50-199 HDL Cholesterol 56 mg/dL 29-86 LDL 99 mg/dL 20-129 Triglycerides 205 mg/dL 30-249 VLDL Cholesterol 41 mg/dL Laboratory test finding 11/13/2010 N2N/CCD Import A/G Ratio 1.2 1.0-2.2 Absolute Basophils 0.098 K/ul 0.0-0.3 Absolute Eosinophils 0.171 K/ul 0.0-0.5 Absolute Lymphocytes 2.75 K/ul 0.8-4.8 Absolute Monocytes 0.527 K/ul 0.1-1.0 Absolute Neutrophils 3.89 K/ul 2.05-7.63 Albumin 4.3 g/dL 3.5-5.0 Alkaline Phosphatase 115 U/L 30-126 Alt 27 U/L 9-52 Ast 20 U/L 14-36 BUN 12 mg/dL 7-18 BUN/CR Ratio 15.1 Ratio 12-20 Basophil 1.3 % 0-2 Calcium 8.8 mg/dL 8.7-10.5 Carbon Dioxide 28 mmol/L 22-30 Chloride 102 mmol/L 98-107 Creatinine, Serum 0.8 mg/dL 0.7-1.2 Eosinophil 2.3 % 0-4 Globulin 3.5 g/dL 2.7-4.3 Glucose 105 mg/dL 65-105 Hematocrit 46.3 % 37.0-51.0 Hemoglobin 15.2 GM/dl 12.0-16.0 Lymphocytes 37.0 % 20-44 MCH 30.7 pg 26.0-32.0 MCHC 32.9 g/dL 31.0-36.0 MCV 93 FL 80-97 Monocytes 7.1 % 2-10.0 Neutrophils 52.3 % 50-70 Platelet Count 265 K/ul 140-440 Potassium 4.9 mmol/L 3.6-5.0 RBC 4.96 M/ul 4.2-6.3 RDW 11.8 % 11.5-14.5 Sodium 143 mmol/L 137-145 TSH 2.457 uIU/ml 0.50-6.00 Total Bilirubin 0.4 mg/dL 0.2-1.3 Total Protein 7.8 g/dL 6.3-8.2 WBC 7.4 K/ul 4.1-10.9 Laboratory test finding 03/25/2010 N2N/CCD Import Anion Gap 11 mmol/L 10 -20 77 BUN 10 mg/dL 7-18 BUN/CR Ratio 14.0 Ratio 12-20 Calcium 9.7 mg/dL 8.7-10.5 Carbon Dioxide 31 mmol/L High 22-30 Chloride 100 mmol/L 98-107 Creatinine, Serum 0.7 mg/dL 0.7-1.2 Glucose 93 mg/dL 65-105 Potassium 4.7 mmol/L 3.6-5.0 Sodium 137 mmol/L 137-145 Laboratory test finding 09/27/2009 N2N/CCD Import Anion Gap 15 mmol/L 10 -20 BUN 14 mg/dL 7-18 BUN/CR Ratio 15.3 Ratio 12-20 Calcium 9.5 mg/dL 8.7-10.5 Carbon Dioxide 29 mmol/L 22-30 Chloride 101 mmol/L 98-107 Creatinine, Serum 0.9 mg/dL 0.7-1.2 Glucose 88 mg/dL 65-105 Potassium 4.6 mmol/L 3.6-5.0 Sodium 140 mmol/L 137-145 Laboratory test 08/15/2009 N2N/CCD Import Microalbumin,Urine < 6.0 mg/L 0.0-15.0 finding Microalbumin/Creatinine Ratio See Note 78 Urine Creatinine Conc 146 mg/dL Laboratory test finding 10/06/2008 N2N/CCD Import Cytology Pap bcc, ok 79 Lipid Panel 09/29/2008 N2N/CCD Import Chol/HDL Ratio 3.8 80, 81 Cholesterol 187 mg/dL 50-199 HDL Cholesterol 49 mg/dL 29-86 LDL 100 mg/dL 20-129 Triglycerides 191 mg/dL 30-249 VLDL Cholesterol 38 mg/dL Laboratory test finding 09/29/2008 N2N/CCD Import CK 74 U/L 26-190 Troponin-I 0.1 ng/mL 0.0-0.6 82 Vitamin D,25-Hydroxy 44.8 ng/mL 32.0-100.0 83 A/G Ratio 1.3 1.0-2.2 Absolute Basophils 0.079 K/ul 0.0-0.3 Absolute Eosinophils 0.154 K/ul 0.0-0.5 Absolute Lymphocytes 3.41 K/ul 0.8-4.8 Absolute Monocytes 0.682 K/ul 0.1-1.0 Absolute Neutrophils 4.83 K/ul 2.05-7.63 Albumin 4.8 g/dL 3.5-5.0 Alkaline Phosphatase 99 U/L 30-126 Alt 28 U/L 9-52 Ast 30 U/L 14-36 BUN 12 mg/dL 7-18 BUN/CR Ratio 13.3 Ratio 12-20 Basophil 0.9 % 0-2 Calcium 9.9 mg/dL 8.7-10.5 Carbon Dioxide 26 mmol/L 22-30 Chloride 105 mmol/L 98-107 Creatinine, Serum 0.9 mg/dL 0.7-1.2 Eosinophil 1.7 % 0-4 Globulin 3.6 g/dL 2.7-4.3 Glucose 105 mg/dL 65-105 Hematocrit 38.4 % 37.0-51.0 Hemoglobin 13.7 GM/dl 12.0-16.0 Lymphocytes 37.2 % 20-44 MCH 30.4 pg 26.0-32.0 MCHC 35.8 g/dL 31.0-36.0 MCV 85 FL 80-97 Monocytes 7.5 % 2-10.0 Neutrophils 52.8 % 50-70 Platelet Count 297 K/ul 140-440 Potassium 4.0 mmol/L 3.6-5.0 RBC 4.52 M/ul 4.2-6.3 RDW 11.8 % 11.5-14.5 Sodium 143 mmol/L 137-145 Total Bilirubin 0.3 mg/dL 0.2-1.3 Total Protein 8.4 g/dL High 6.3-8.2 WBC 9.2 K/ul 4.1-10.9 Laboratory test finding 09/28/2008 N2N/CCD Import Anion Gap 12 mEq/L 8- 16 BUN 13 mg/dL 5-23 BUN/Creat 13.0 Bas% 0.3 % 0.0-1.1 Baso # 0.0 K/uL 0.0-0.1 CK 79 U/L 26-190 Calcium 9.2 mg/dL 8.5-10.1 Carbon Dioxide 28 mEq/L 21-32 Chloride 102 mEq/L 98-107 Creatinine 1.0 mg/dL 0.5-1.4 D-Dimer, Quantitative 0.24 ug/mL 84 Eo% 1.3 % 0.0-6.6 Eos # 0.1 K/uL 0.0-0.5 Glom Filtration Rate, Estimate >60 mL/min >60 Glucose 107 mg/dL 76-115 Hematocrit 39.4 % 36.0-46.1 Hemoglobin 13.2 gm/dL 11.6-15.8 If >60 mL/min >60 85 Lymph # 3.6 K/uL High 0.8-3.4 Lymph % 38.0 % 17.0-46.1 Mean Cell Volume 90.0 fl 80.9-99.0 Mean Corpuscular HGB 30.1 pg 25.9-32.7 Mean Corpuscular HGB Conc 33.5 g/dL 30.8-34.3 Mean Platelet Volume 11.4 fL 8.9-12.4 [place] # 0.7 K/uL 0.3-0.9 [place] % 7.1 % 4.3-13.2 Neut# 5.0 K/uL 1.0-7.0 Neut% 53.3 % 40.4-72.8 Platelet Count 268 K/uL 155-360 Potassium 3.7 mEq/L 3.5-5.1 Red Blood Count 4.38 M/uL 3.90-5.40 Red Cell Distri Width %CV 12.6 % 11.7-14.4 Red Cell Distri Width SD 40 fl 3-47 Sodium 138 mEq/L 136-145 Troponin-I 0.1 ng/mL 0.0-0.6 86 White Blood Count 9.5 K/uL 3.1-10.7 1 before visit 06/2018 2 Updated reference range on new analyzer 3 Updated reference range on new analyzer 4 Updated Reference Range 5 Concerning GFR Guidelines for Americans: Normal function or mild renal disease, if clinically at risk: >/=60 mL/min Moderately decreased: 30-59 Severely decreased: 15-29 Renal failure: <15 6 Concerning GFR Guidelines: Normal function or mild renal disease, if clinically at risk: >/=60 mL/min Moderately decreased: 30-59 Severely decreased: 15-29 Renal failure: <15 Glomerular Filtration Rate (GFR) is estimated based on the MDRD equation, which assumes a steady state for creatinine as recommended by the National Kidney Disease Education Program in conjunction with the National Institutes of Health and the National Kidney Foundation. Clinical conditions in which it may be necessary to measure GFR by using clearance methods include extremes of age and body size, severe malnutrition or obesity, diseases of skeletal muscle, paraplegia or quadriplegia, vegetarian diet, rapidly changing kidney function, and calculation of the dose of potentially toxic drugs that are excreted by the kidneys. 7 Per NCEP ATP III Guidelines: Results lower than 40 mg/dL are suggestive of increased risk for coronary artery disease. Results > or=to 60 mg/dL are considered a negative risk factor. 8 Per NCEP ATP III Guidelines: Normal Population <130 Patients with medical conditions: CHD/DM Optimal: <100 Borderline high: 130-159 High: 160-189 Very high: >189 9 [employer] [address] CYTOLOGY REPORT Source of Specimen(s): Thin Prep Vaginal Pap Smear - One Vial Date of Last Menstrual Period: yrs ago Treatment History: Hysterectomy Other Clinical Conditions: Last Pap Smear: 2016 ok REFLEX TO HPV ASSAY IF RESULTS OF THIS PAP ARE ASCUS Specimen Adequacy SATISFACTORY FOR EVALUATION General Categorization NEGATIVE FOR INTRAEPITHELIAL LESION OR MALIGNANCY Interpretation NEGATIVE FOR INTRAEPITHELIAL LESION OR MALIGNANCY Reported: 01/06/2018 14:58 Electronically Signed Out By Olga Alicia MS,SCT(ASCP)([facility]) carmina Maravilla CT(ASCP) [facility] ICD9 Code: Z85.41 Z01.419 CPT code: A: [id number] QC Reviewed: Y Unless otherwise specified, testing performed by [facility] [place] [address] [place] [address] 10 before visit 12/2017 11 Per NCEP ATP III Guidelines: Results lower than 40 mg/dL are suggestive of increased risk for coronary artery disease. Results > or=to 60 mg/dL are considered a negative risk factor. 12 Per NCEP ATP III Guidelines: Normal Population <130 Patients with medical conditions: CHD/DM Optimal: <100 Borderline high: 130-159 High: 160-189 Very high: >189 13 Updated reference range on new analyzer 14 Updated reference range on new analyzer 15 Concerning GFR Guidelines for Americans: Normal function or mild renal disease, if clinically at risk: >/=60 mL/min Moderately decreased: 30-59 Severely decreased: 15-29 Renal failure: <15 16 Concerning GFR Guidelines: Normal function or mild renal disease, if clinically at risk: >/=60 mL/min Moderately decreased: 30-59 Severely decreased: 15-29 Renal failure: <15 Glomerular Filtration Rate (GFR) is estimated based on the MDRD equation, which assumes a steady state for creatinine as recommended by the National Kidney Disease Education Program in conjunction with the National Institutes of Health and the National Kidney Foundation. Clinical conditions in which it may be necessary to measure GFR by using clearance methods include extremes of age and body size, severe malnutrition or obesity, diseases of skeletal muscle, paraplegia or quadriplegia, vegetarian diet, rapidly changing kidney function, and calculation of the dose of potentially toxic drugs that are excreted by the kidneys. 17 Updated Reference Range 18 before visit 06/2017 19 Per NCEP ATP III Guidelines: Results lower than 40 mg/dL are suggestive of increased risk for coronary artery disease. Results > or=to 60 mg/dL are considered a negative risk factor. 20 Per NCEP ATP III Guidelines: Normal Population <130 Patients with medical conditions: CHD/DM Optimal: <100 Borderline high: 130-159 High: 160-189 Very high: >189 21 Updated reference range on new analyzer 22 Updated reference range on new analyzer 23 Concerning GFR Guidelines for Americans: Normal function or mild renal disease, if clinically at risk: >/=60 mL/min Moderately decreased: 30-59 Severely decreased: 15-29 Renal failure: <15 24 Concerning GFR Guidelines: Normal function or mild renal disease, if clinically at risk: >/=60 mL/min Moderately decreased: 30-59 Severely decreased: 15-29 Renal failure: <15 Glomerular Filtration Rate (GFR) is estimated based on the MDRD equation, which assumes a steady state for creatinine as recommended by the National Kidney Disease Education Program in conjunction with the National Institutes of Health and the National Kidney Foundation. Clinical conditions in which it may be necessary to measure GFR by using clearance methods include extremes of age and body size, severe malnutrition or obesity, diseases of skeletal muscle, paraplegia or quadriplegia, vegetarian diet, rapidly changing kidney function, and calculation of the dose of potentially toxic drugs that are excreted by the kidneys. 25 Updated Reference Range -2017 26 Note: Persistent reduction for 3 months or more in an eGFR <60 mL/min/1.73 m2 defines CKD. Patients with eGFR values >/=60 mL/min/1.73 m2 may also have CKD if evidence of persistent proteinuria is present. The original MDRD equation for estimated GFR is not valid for patients less than 18 years of age. Additional information may be found at www.kdoqi.org. 27 Reference Guidelines*: Desirable: ........... < 200 mg/dL Borderline High: ..... 200-239 mg/dL High: ................ >=240 mg/dL * The National Cholesterol Education Program (NCEP) 28 Reference Guidelines*: Normal: ............. < 150 mg/dL Borderline High: .... 150-199 mg/dL High: ............... 200-499 mg/dL Very High: .......... > 500 mg/dL * Source: National Cholesterol Education Program (NCEP) 29 Reference Guidelines*: Low HDL: ..... < 40 mg/dL Normal: ..... 40-60 mg/dL Desirable: ... > 60 mg/dL *The National Cholesterol Education Program(NCEP) 30 Reference Guidelines*: Optimal:........... <100 mg/dL Near Optimal....... 100-129 mg/dL Borderline High.... 130-159 mg/dL High............... 160-189 mg/dL Very High.......... >=190 mg/dL * Source: National Cholesterol Education Program (NCEP) 31 [facility]. [address] [place] [id number] CYTOLOGY REPORT Source of Specimen(s): Thin Prep Cervical / Endocervical Pap Smear - One Vial Date of Last Menstrual Period: None Provided Treatment History: Hysterectomy Other Clinical Conditions: Last Pap Smear: 2013 OK REFLEX TO HPV ASSAY IF RESULTS OF THIS PAP ARE ASCUS Specimen Adequacy SATISFACTORY FOR EVALUATION ABSENCE OF ENDOCERVICAL/TRANSFORMATION ZONE COMPONENT General Categorization NEGATIVE FOR INTRAEPITHELIAL LESION OR MALIGNANCY Interpretation NEGATIVE FOR INTRAEPITHELIAL LESION OR MALIGNANCY Reported: 12/29/2016 15:11 Electronically Signed Out By Blanca BUCHANAN(ASCP) mariam Unless otherwise specified, testing performed by [facility] [place] [facility] [place] [address] [place] [id number] befreo visit 12/2016 33 Per NCEP ATP III Guidelines: Results lower than 40 mg/dL are suggestive of increased risk for coronary artery disease. Results > or=to 60 mg/dL are considered a negative risk factor. 34 Per NCEP ATP III Guidelines: Normal Population <130 Patients with medical conditions: CHD/DM Optimal: <100 Borderline high: 130-159 High: 160-189 Very high: >189 35 Updated reference range on new analyzer 36 Updated reference range on new analyzer 37 Concerning GFR Guidelines for Americans: Normal function or mild renal disease, if clinically at risk: >/=60 mL/min Moderately decreased: 30-59 Severely decreased: 15-29 Renal failure: <15 38 Concerning GFR Guidelines: Normal function or mild renal disease, if clinically at risk: >/=60 mL/min Moderately decreased: 30-59 Severely decreased: 15-29 Renal failure: <15 Glomerular Filtration Rate (GFR) is estimated based on the MDRD equation, which assumes a steady state for creatinine as recommended by the National Kidney Disease Education Program in conjunction with the National Institutes of Health and the National Kidney Foundation. Clinical conditions in which it may be necessary to measure GFR by using clearance methods include extremes of age and body size, severe malnutrition or obesity, diseases of skeletal muscle, paraplegia or quadriplegia, vegetarian diet, rapidly changing kidney function, and calculation of the dose of potentially toxic drugs that are excreted by the kidneys. 39 Updated reference range on new analyzer 40 Unable to calculate ratio. Microalbumin <5.0 41 today letter 42 Concerning GFR Guidelines: Normal function or mild renal disease, if clinically at risk: >/=60 mL/min Moderately decreased: 30-59 Severely decreased: 15-29 Renal failure: <15 Glomerular Filtration Rate (GFR) is estimated based on the MDRD equation, which assumes a steady state for creatinine as recommended by the National Kidney Disease Education Program in conjunction with the National Institutes of Health and the National Kidney Foundation. Clinical conditions in which it may be necessary to measure GFR by using clearance methods include extremes of age and body size, severe malnutrition or obesity, diseases of skeletal muscle, paraplegia or quadriplegia, vegetarian diet, rapidly changing kidney function, and calculation of the dose of potentially toxic drugs that are excreted by the kidneys. 43 Concerning GFR Guidelines for Americans: Normal function or mild renal disease, if clinically at risk: >/=60 mL/min Moderately decreased: 30-59 Severely decreased: 15-29 Renal failure: <15 44 EUGENIE Maravilla 45 Concerning GFR Guidelines: Normal function or mild renal disease, if clinically at risk: >/=60 mL/min Moderately decreased: 30-59 Severely decreased: 15-29 Renal failure: <15 Glomerular Filtration Rate (GFR) is estimated based on the MDRD equation, which assumes a steady state for creatinine as recommended by the National Kidney Disease Education Program in conjunction with the National Institutes of Health and the National Kidney Foundation. Clinical conditions in which it may be necessary to measure GFR by using clearance methods include extremes of age and body size, severe malnutrition or obesity, diseases of skeletal muscle, paraplegia or quadriplegia, vegetarian diet, rapidly changing kidney function, and calculation of the dose of potentially toxic drugs that are excreted by the kidneys. 46 Concerning GFR Guidelines for Americans: Normal function or mild renal disease, if clinically at risk: >/=60 mL/min Moderately decreased: 30-59 Severely decreased: 15-29 Renal failure: <15 47 [facility]. [address] [place] [address] CYTOLOGY REPORT Source of Specimen(s): Thin Prep Vaginal Pap Smear - One Vial Date of Last Menstrual Period: yrs ago Menstrual History: Post-menopausal Treatment History: Hysterectomy Other Clinical Conditions: Last Pap Smear: 2014 ok REFLEX TO HPV ASSAY IF RESULTS OF THIS PAP ARE ASCUS Specimen Adequacy Satisfactory for evaluation General Categorization Negative for intraepithelial lesion or malignancy Interpretation NEGATIVE FOR INTRAEPITHELIAL LESION OR MALIGNANCY Reported: 12/27/2015 08:59 Electronically Signed Out By Olga Alicia SCT([facility])([facility]) [facility] ICD9 Code: Z01.419 Z85.41 48 Concerning GFR Guidelines for Americans: Normal function or mild renal disease, if clinically at risk: >/=60 mL/min Moderately decreased: 30-59 Severely decreased: 15-29 Renal failure: <15 49 Concerning GFR Guidelines: Normal function or mild renal disease, if clinically at risk: >/=60 mL/min Moderately decreased: 30-59 Severely decreased: 15-29 Renal failure: <15 Glomerular Filtration Rate (GFR) is estimated based on the MDRD equation, which assumes a steady state for creatinine as recommended by the National Kidney Disease Education Program in conjunction with the National Institutes of Health and the National Kidney Foundation. Clinical conditions in which it may be necessary to measure GFR by using clearance methods include extremes of age and body size, severe malnutrition or obesity, diseases of skeletal muscle, paraplegia or quadriplegia, vegetarian diet, rapidly changing kidney function, and calculation of the dose of potentially toxic drugs that are excreted by the kidneys. 50 Unable to calculate ratio. Microalbumin <5.0 51 Per NCEP ATP III Guidelines: Results lower than 40 mg/dL are suggestive of increased risk for coronary artery disease. Results > or=to 60 mg/dL are considered a negative risk factor. 52 Per NCEP ATP III Guidelines: Normal Population <130 Patients with medical conditions: CHD/DM Optimal: <100 Borderline high: 130-159 High: 160-189 Very high: >189 53 today letter 54 Concerning GFR Guidelines: Normal function or mild renal disease, if clinically at risk: >/=60 mL/min Moderately decreased: 30-59 Severely decreased: 15-29 Renal failure: <15 Glomerular Filtration Rate (GFR) is estimated based on the MDRD equation, which assumes a steady state for creatinine as recommended by the National Kidney Disease Education Program in conjunction with the National Institutes of Health and the National Kidney Foundation. Clinical conditions in which it may be necessary to measure GFR by using clearance methods include extremes of age and body size, severe malnutrition or obesity, diseases of skeletal muscle, paraplegia or quadriplegia, vegetarian diet, rapidly changing kidney function, and calculation of the dose of potentially toxic drugs that are excreted by the kidneys. 55 Concerning GFR Guidelines for Americans: Normal function or mild renal disease, if clinically at risk: >/=60 mL/min Moderately decreased: 30-59 Severely decreased: 15-29 Renal failure: <15 56 fsting before visit 57 LABORATORY [employer] [facility] [employer]. [facility] [place] [address] GYNECOLOGIC CYTOLOGY REPORT Accession Number: [id number] Source of Specimen(s): A: Thin Prep Vaginal Pap Smear - One Vial Clinical Diagnosis and History: Date of Last Menstrual Period: yrs ago Menstrual History: Post-menopausal Treatment History: Hysterectomy: LAURO III Other Clinical Conditions: Last Pap Smear: 2013 REFLEX TO HPV ASSAY IF RESULTS OF THIS PAP ARE ASCUS Specimen Adequacy Satisfactory for evaluation General Categorization Negative for intraepithelial lesion or malignancy Interpretation NEGATIVE FOR INTRAEPITHELIAL LESION OR MALIGNANCY Reported: 12/26/2014 Electronically Signed Out By Blanca BUCHANAN(ASCP) Cottage Attendant: Sara BUCHANAN(ASCP) [facility] dss QC Reviewed: Y Unless otherwise specified, testing performed by [employer] [facility] 40 [address] [address] 58 Per NCEP ATP III Guidelines: Results lower than 40 mg/dL are suggestive of increased risk for coronary artery disease. Results > or=to 60 mg/dL are considered a negative risk factor. 59 Per NCEP ATP III Guidelines: Normal Population <130 Patients with medical conditions: CHD/DM Optimal: <100 Borderline high: 130-159 High: 160-189 Very high: >189 60 Concerning GFR Guidelines for Americans: Normal function or mild renal disease, if clinically at risk: >/=60 mL/min Moderately decreased: 30-59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
[2018-07-31 16:37] VITALS: BP 121/81
--- NOTE | 2018-07-31 16:41 | UC ---
Minor Trauma HPI - HPI Summary HPI Summary: 57-year-old female presents with injury to her left middle finger and left knee. States she slipped and fell going down some stairs earlier today. She is unsure of the exact mechanism of injury to the finger but states she is unable to fully extend the distal finger. States she believes she struck her lower knee on one of the steps as she fell. She was able to bear weight immediately after the injury and in the clinic. States she thinks she did hit her head however denies loss of consciousness or headache. - History of Current Complaint Chief Complaint: UCUpperExtremity Stated Complaint: WC-LEFT HAND MIDDLE FINGER INJURY Time Seen by Provider: 07/31/18 16:17 Hx Obtained From: Patient Hx Last Menstrual Period: n/a Pain Intensity: 0 - Allergies/Home Medications Allergies/Adverse Reactions: Allergies Allergy/AdvReac Type Severity Reaction Status Date / Time wheat Allergy Coughing Uncoded 07/31/18 16:37 PMH/Surg Hx/FS Hx/Imm Hx Endocrine History: Dyslipidemia Cardiovascular History: Hypertension Psychological History: Depression Other History Of: Negative For: HIV, Hepatitis B, Hepatitis C, Anticoagulant Therapy - Surgical History Surgical History: Yes Surgery Procedure, Year, and Place: tubal, , Tonsilectomy, hysterectomy - Family History Known Family History: Positive: Hypertension, Diabetes - Social History Occupation: Employed Full-time Lives: With Family Alcohol Use: Occasionally Alcohol Amount: 1 drink daily Substance Use Type: None Smoking Status (MU): Never Smoked Tobacco - Immunization History Most Recent Influenza Vaccination: no Review of Systems All Other Systems Reviewed And Are Negative: Yes Constitutional: Positive: Negative Skin: Positive: Bruising, Other - Abrasion Eyes: Positive: Blurred Vision, Diplopia, Photophobia Respiratory: Negative: Shortness Of Breath, Cough Cardiovascular: Negative: Palpitations, Chest Pain Gastrointestinal: Negative: Abdominal Pain, Vomiting, Diarrhea, Nausea Genitourinary: Positive: Negative Motor: Negative: Weakness Neurovascular: Negative: Decreased Sensation Musculoskeletal: Positive: Other: - See HPI Neurological: Negative: Headache, Weakness, Paresthesia, Numbness Physical Exam - Summary Physical Exam Summary: GENERAL APPEARANCE: Well developed, well nourished, alert and cooperative, and appears to be in no acute distress. HEAD: Atraumatic. normocephalic. EYES: Conjunctiva clear. No drainage. PERRL, EOM intact. Vision is grossly intact. NECK: Neck supple, non-tender. CARDIAC: Normal S1 and S2. No S3, S4 or murmurs. Rhythm is regular. There is no peripheral edema, cyanosis or pallor. Extremities are warm and well perfused. Capillary refill is less than 2 seconds. Peripheral pulses intact. LUNGS: Clear to auscultation without rales, rhonchi, wheezing or diminished breath sounds. ABDOMEN: Positive bowel sounds. Soft, nondistended, nontender. No guarding or rebound. No masses or hepatosplenomegally. MUSKULOSKELETAL: Normal muscular development. Normal gait. BACK: Examination of the spine reveals normal gait and posture, no spinal deformity or tenderness, decreased range of motion or muscular spasm. EXTREMITIES: Mild bruising noted over the DIP of the left middle finger and she is unable to fully extend the DIP otherwise range of motion is intact to the finger. No crepitus or deformity noted. Left knee is nontender and has full range of motion. NEUROLOGICAL: CN II-XII intact. Strength and sensation symmetric and intact throughout. Reflexes 2+ throughout. Cerebellar testing normal. SKIN: Skin normal color, texture and turgor. Bruising and a superficial abrasion noted to the inferior knee and upper lower leg. Triage Information Reviewed: Yes Vital Signs: Initial Vital Signs Temp 98 F 07/31/18 16:31 Pulse 87 07/31/18 16:31 Resp 16 07/31/18 16:31 BP 121/81 07/31/18 16:31 Pulse Ox 100 07/31/18 16:31 Vital Signs Reviewed: Yes Procedures - Splinting Left 3rd Digit Pre-Made Type: Padded aluminum splint Splint: Finger Pre-Proc Neuro Vasc Exam: normal Post-Proc Neuro Vasc Exam: normal Diagnostics - Radiology No standard instances Radiology Interpretation Completed By: Radiologist Summary of Radiographic Findings: Patient Name: DINH DELEON Medical Record# : [id number]. Ordering Physician: Zhen Levi NP Acct.#: [id number]. : 1960 Age: 57 Sex: F Location: [facility]. Exam Date: 1635 ADM Status: REG ER. Order Information: FINGER LEFT MIDDLE. Accession Number: [id number]. CPT: 05979. INDICATION: Finger injury. TECHNIQUE: 3 views of the left third finger were obtained. FINDINGS: There is soft tissue swelling about the left third digit. The third proximal interphalangeal joint is hyperextended. The articular surfaces are grossly intact. The bone mineralization is within normal limits. No acute fracture is identified. IMPRESSION: 1. The left third PIP is hyperextended. The articular surfaces are grossly intact. 2. No acute fracture is identified. Order Information: KNEE LEFT 4+ VWS. Accession Number: [id number]. CPT: 41398. INDICATION: Left knee injury. TECHNIQUE: 4 views of the left knee were obtained. FINDINGS: The soft tissues tissues are unremarkable. There is no effusion. The bone mineralization is within normal limits. No acute fracture is identified. There is an incidental flabella. Anatomic alignment is maintained. 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 A 6 mm ossicle seen only on the lateral view near the anterior aspect of the tibial plateau could be direct marketing representative of the loose body. IMPRESSION: 1. No fracture or traumatic malalignment of the left knee. 2. A 6 mm ossicle seen only on the lateral view near the anterior aspect of the tibial. plateau could be direct marketing representative of the loose body in the joint space. 3. Mild tricompartmental osteoarthropathy. Minor Trauma Course/Dx - Course Course Of Treatment: 57-year-old female presents with injury to her left middle finger and left knee. States she slipped and fell going down some stairs earlier today. She is unsure of the exact mechanism of injury to the finger but states she is unable to fully extend the distal finger. States she believes she struck her lower knee on one of the steps as she fell. She was able to bear weight immediately after the injury and in the clinic. States she thinks she did hit her head however denies loss of consciousness or headache. Afebrile. Vital signs stable. Exam reveals an alert adult female in no acute distress, neurologically intact, there is some mild bruising noted over the DIP of the left middle finger and she is unable to fully extend the DIP otherwise range of motion is intact to the finger, left knee is nontender and has full range of motion, there is bruising and a superficial abrasion noted to the inferior knee and upper lower leg, otherwise exam is unremarkable. X-ray of the finger and knee show no acute fracture or dislocation. I suspect she may have a rupture of the extensor tendon of the left middle finger before she was placed in a aluminum finger splint. I suspect that she also has a contusion of the left knee. She is to follow-up with orthopedic surgery within 5 days for evaluation of the left finger. Recommending conservative treatment with [id number] analgesics and RICE. Anticipatory guidance and warning symptoms were reviewed with the patient. Verbalizes understanding and agrees with plan of care. - Differential Dx/Diagnosis Differential Diagnosis/HQI/PQRI: Abrasion(s), Contusion(s), Fracture, Dislocation, Sprain Provider Diagnosis: Contusion of left knee, Abrasion of left knee, Closed head injury, Mallet finger of left hand Discharge - Sign-Out/Discharge Documenting (check all that apply): Patient Departure All imaging exams completed and their final reports reviewed: Yes - Discharge Plan Condition: Stable Disposition: HOME Patient Education Materials: Jammed Finger (ED), Head Injury (ED), Contusion in Adults (ED), Abrasion (ED) Referrals: Heather Adams MD [Primary Care Provider] - Marko Hamilton MD [Medical Doctor] - 5 Days (Call Thursday for appointment. ) Additional Instructions: The x-ray of your finger and knee showed no fracture or dislocation. I suspect that you may have a rupture of the extensor tendon of the left middle finger ( mallet finger) and a contusion of the left knee. Wear the finger splint that was applied in the clinic today until you follow up with orthopedic surgery. You may remove to shower but wear all other times. Rest the hand as much as possible. You may continue to walk and bear weight on the knee as tolerated. Apply ice to the finger and knee for 15-20 minutes at least 4 times a day to help with pain and swelling. Keep the hand elevated at the level of the heart to reduce swelling. Keep leg elevated while sitting. Clean the abrasion to the knee with a mild soap and water at least once a day. Apply an antibiotic ointment such as bacitracin twice a day and cover with a gauze dressing. Take acetaminophen (Tylenol) or ibuprofen (Advil, Motrin) according to directions as needed for pain. Follow up with orthopedic surgery within 5 days for further evaluation of the finger. Call Thursday for an appointment. Seek immediate medical attention in the emergency room if you have severe pain not managed with pain medication, you are unable to walk or bear weight on the knee, have a severe headache, one pupil is larger than the other, confusion, you are difficult to arouse, dizziness, numbness or tingling, persistent or projectile vomiting, or any worsening of symptoms. - Billing Disposition and Condition Condition: STABLE Disposition: Home
== END 2018-07-31 17:37 | disposition home or self-care (01) ==
LOC: UCCORT 16:13
DX: S80.02XA Contusion of left knee, initial encounter (principal); S80.212A Abrasion, left knee, initial encounter; S09.90XA Unspecified injury of head, initial encounter; M20.012 Mallet finger of left finger(s); Z91.018 Allergy to other foods; I10 Essential (primary) hypertension; W01.0XXA Fall on same level from slipping, tripping and stumbling without subsequent striking against object, initial encounter; Y92.9 Unspecified place or not applicable
CPT/HCPCS: 73140; 99211; G0463

== ENCOUNTER 2018-08-05 10:54 | Day surgery (SDC) | payer OTHER ==
[~2018-08-05 10:54] MED LIST: Buffered Lidocaine 1% SYRIN* 1 ML/SYRINGE INTRADERM ONE; Dexamethasone IV* 4 MG/ML 1 ML (4 MG) IV SLOW PU ONE; Dexamethasone IV* 4 MG/ML 1 ML (4 MG) ONE; Famotidine IV* 10 MG/ML 2 ML (20 mg) IV ONE; Famotidine IV* 10 MG/ML 2 ML (20 mg) ONE; Lactated Ringers 1000 ML Bag* 1,000 ML IV SCH
[2018-08-05] MEDS ORDERED: ceFAZolin 2 GM in NS PREMIX(*) 2 GM/100 ML BAG IVPB ONE (11:14)
[2018-08-05] MEDS ORDERED: Midazolam* 1 MG/ML 5 ML VIAL (5 MG) ONE (13:52)
[2018-08-05] MEDS ORDERED: fentaNYL* 50 MCG/ML 2 ML VIAL (100 MCG VIAL) ONE (13:52)
[2018-08-05] MEDS ORDERED: Propofol* 10 MG/ML 20 ML BTL ONE (13:52)
[2018-08-05] MEDS ORDERED: Bupivacaine 0.25% SDV PF* 10 ML VIAL INJ ONE (13:57)
[2018-08-05] MEDS ORDERED: fentaNYL* 50 MCG/ML 2 ML VIAL (100 MCG VIAL) IV PRN ×2 (13:59→15:13)
[2018-08-05] MEDS ORDERED: oxyCODONE/Acetamin 5/325 MG* TAB PO PRN (13:59)
[2018-08-05] MEDS ORDERED: DiMENhydriNATE IV* 50 MG/ML VIAL IV PUSH PRN (13:59)
[2018-08-05] MEDS ORDERED: Ketorolac INJ* 30 MG/ML 1 ML VIAL IV PRN (13:59)
[2018-08-05] MEDS ORDERED: Naloxone* 0.4 MG/ML 1 ML VIAL IV PRN ×2 (13:59→15:13)
[2018-08-05] MEDS ORDERED: HYDROcodone/ACETAMIN 5-325 MG* 1 TAB PO PRN (13:59)
[2018-08-05] MEDS ORDERED: Lidocaine 2% PF * 5 ML VIAL ONE (14:02)
[2018-08-05 16:02] VITALS: BP 116/82
--- NOTE | 2018-08-05 16:56 | OP ---
DATE OF OPERATION: 08/05/18 - MD EAST DATE OF : 56 SURGEON: Kenneth Santos MD IRIDOLOGIST: JANUSZ Cazares An reproductive healthcare assistant was needed for the procedure to aid in positioning of the arm and retraction. ANESTHESIOLOGIST: Dr. Pedro followed by Dr. Roger. ANESTHESIA: Local MAC. PRE-OP DIAGNOSIS: Left middle finger terminal extensor tendon rupture with acute swan-neck deformity. POST-OP DIAGNOSIS: Left middle finger terminal extensor tendon rupture with acute swan-neck deformity. OPERATIVE PROCEDURE: Left middle finger terminal extensor tendon repair using Arthrex Arminda suture anchors x2. ESTIMATED BLOOD LOSS: 2 mL. COMPLICATIONS: None. FINDINGS: See above and below. INDICATIONS: Alia is 57 years old. 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 She had the finger injury and had a quite severe acute swan-neck deformity. I talked to her about her options. I told her that even with surgery, there is a chance she still may end up with a bit of a swan-neck deformity and an extension lag. She wants to proceed with surgery. DESCRIPTION OF PROCEDURE: Alia was seen in the preoperative holding area. The correct site, side and procedure were identified. We came back to the operating room where the arm was prepped and draped in the usual fashion and a time-out was performed. The arm was exsanguinated with the Esmarch and the tourniquet was inflated to 250 mmHg. I began by making a curvilinear incision over the dorsum of the finger over the distal phalanx and over the middle phalanx. A full-thickness flap was raised off the terminal extensor tendon. The flap was sewn back with 4 -0 nylon suture. I went ahead and performed a tenolysis and identified where the tendons had ruptured off. The edge was debrided back to a healthy looking extensor tendon. The footprint on the tendon was debrided with the [place] blade. I then used the K-wire to make a drill hole and then placed an Arthrex Arminda suture anchor. I then placed a second Arthrex Arminda suture anchor adjacent to that. I utilized 3-0 FiberWire suture to perform a whipstitch at a centimeter and a half in the terminal extensor tendon. I utilized both of these sutures. Both stitches were then tied off with the finger tip extended, bringing the tendon back down in opposition to the bone. After that was done, the fingertip set in 10 degrees of hyperextension. At this point, everything was looking very nice. I irrigated out the wound. The skin was closed with 4- 0 nylon suture. I had already performed a digital block with 0.25% Marcaine. The tourniquet was deflated. The finger pinked up immediately. The wound was dressed with Xeroform, 4x4s, 1 inch [place], and AlumaFoam splint and Coban. She was taken to the recovery room in stable condition. [id number]/CPS #: [id number] ZOILA
== END 2018-08-05 15:40 | disposition home or self-care (01) ==
LOC: OREAST 10:54
PROVIDERS: ATTEND Orthopaedic Surgery Hand Surgery
DX: S66.313A Strain of extensor muscle, fascia and tendon of left middle finger at wrist and hand level, initial encounter (principal); W10.9XXA Fall (on) (from) unspecified stairs and steps, initial encounter; Y92.9 Unspecified place or not applicable; Y99.0 Civilian activity done for income or pay; I10 Essential (primary) hypertension; E78.5 Hyperlipidemia, unspecified; F32.9 Major depressive disorder, single episode, unspecified
CPT/HCPCS: C1713; J0690; J1100; J2250; J2704; J3010; J3490